=== PATIENT | male | born 1955 | race Caucasian/White ===

== ENCOUNTER 2019-10-06 09:48 | Outpatient (CLI) | payer MEDICARE, SELFPAY ==
[2019-10-06 10:10] LABS: Basophils Percent Auto 0.6 % (0.2-1.2); Eosinophils Percent Auto 0.6 % (0-4.4); Hematocrit 42.9 % (42.0-52.0); Hemoglobin 14.1 g/dL (14.0-18.0); Immature Granulocyte Absolute 0.03 K/mm3 (0.00-0.031); Immature Granulocyte Percent A 0.5 % (0-0.5); Lymphocytes Absolute Auto 1.05 K/mm3 (0.9-3.2); Lymphocytes Percent Auto 16.6 % (18.3-44.2); Mean Corpuscular HGB Conc 32.9 g/dl (32-36); Mean Corpuscular Hemoglobin 30.5 pg (26-34); Mean Corpuscular Volume 92.9 fl (80-100); Mean Platelet Volume 9.2 fl (7.4-10.4); Monocytes Absolute Auto 0.4 K/mm3 (0.1-0.6); Monocytes Percent Auto 6.5 % (2.6-8.5); Neutrophils Absolute Auto 4.8 K/mm3 (1.3-6.7); Neutrophils Percent Auto 75.2 % (45.5-73.1); Platelet Count Result 244 k/mm3 (150-375); Red Blood Count 4.62 M/mm3 (4.6-6.20); Red Cell Distribution Width 12.7 % (11.5-14.5); White Blood Count 6.3 K/mm3 (4.5-10.0)
[2019-10-06 15:13] LABS: Alanine Aminotransferase 227 U/L (4-50); Albumin Level 4.3 g/dL (3.5-5.1); Alkaline Phosphatase 331 U/L (38-126); Aspartate Amino Transferase 148 U/L (17-59); Bilirubin,Total 0.5 mg/dL (0.2-1.3); Blood Urea Nitrogen 21 mg/dL (9-20); Calcium 9.5 mg/dL (8.4-10.2); Carbon Dioxide 24 mmol/L (22-30); Chloride 103 mmol/L (98-107); Estimated Glomerular Filt Rate > 60; Glucose 96 mg/dL (75-110); Potassium 4.6 mmol/L (3.4-5.0); Sodium 136 mmol/L (137-145)
== END 2019-10-06 09:49 | disposition home or self-care (01) ==
LOC: ANHLAB 09:54
PROVIDERS: PCP Internal Medicine; Visit Provider Internal Medicine Hematology & Oncology
DX: C34.90 Malignant neoplasm of unspecified part of unspecified bronchus or lung (principal)
CPT/HCPCS: 36415; 80053; 85025

== ENCOUNTER 2019-11-12 11:34 | Outpatient (CLI) | payer MEDICARE, SELFPAY ==
--- NOTE | 2019-11-12 11:36 | ECG_ITS ---
Measurements Intervals [place] Rate: 81 P: 38 SC: 254 QRS: 11 QRSD: 94 T: 8 QT: 356 QTc: 413 Interpretive Statements SINUS RHYTHM BASELINE ARTIFACT- I, II, III, AVR, AVL, AVF, V1-V6 BORDERLINE ECG Electronically Signed On 11-12-2019 12:34:23 CDT by Sujit Robison D.O.
[2019-11-12 12:13] LABS: INR 1.1
[2019-11-12 12:14] LABS: Partial Thromboplastin Time 26.5 SECONDS (22.3-36.8)
== END 2019-11-12 11:35 | disposition home or self-care (01) ==
PROVIDERS: PCP Internal Medicine; Visit Provider Surgery
DX: Z01.818 Encounter for other preprocedural examination (principal); I10 Essential (primary) hypertension; C34.90 Malignant neoplasm of unspecified part of unspecified bronchus or lung
CPT/HCPCS: 36415; 85610; 85730; 93005

== ENCOUNTER 2019-11-20 00:20 | Outpatient (CLI) | payer MEDICARE, SELFPAY ==
[2019-11-20 17:26] LABS: SARS-CoV-2 RNA PCR Negative
== END 2019-11-20 00:21 | disposition home or self-care (01) ==
LOC: ANHCOVIDDT 00:20
PROVIDERS: PCP Internal Medicine; Visit Provider Surgery
DX: Z01.812 Encounter for preprocedural laboratory examination (principal); Z20.828 Contact with and (suspected) exposure to other viral communicable diseases
CPT/HCPCS: 87635; C9803; U0003

== ENCOUNTER 2019-11-23 00:17 | Day surgery (SDC) | payer MEDICARE, SELFPAY ==
[2019-11-11 13:57] VITALS: BMI 34.4
--- NOTE | ~2019-11-23 | XR_ITS ---
EXAMINATION: XR fl guide central line place DATE: 11/23/2019 09:15 INDICATION: Port placement. TECHNIQUE: A single intraoperative fluoroscopic view of the chest was obtained. I was not present. Fl uoroscopy exposure time was 16 seconds. COMPARISON: Chest single view 11/23/2019 FINDINGS: There is a left subclavian port with tip not included. IMPRESSION: 1. Port placement. Reviewed, dictated and finalized at location A. IMPRESSION: 1. Port placement.
--- NOTE | ~2019-11-23 | XR_ITS ---
EXAMINATION: XR chest port-a-cath/central DATE: 11/23/2019 09:26 INDICATION: Port placement. TECHNIQUE: A single frontal view of the chest was obtained. COMPARISON: None. FINDINGS: The chest demonstrates clear lungs without pneumonia, pleural effusion, or pneumothorax. Th e heart size is normal. There is a left subclavian port with tip in superior vena cava. IMPRESSION: 1. Port tip in superior vena cava. Reviewed, dictated and finalized at location A.
--- NOTE | 2019-11-23 07:28 | PM.IMHP ---
H&P: HPI History of Present Illness Chief complaint: Small Cell Lung Cancer Narrative: Jaylen Cote is a 64 year old male presenting to hospital for placement of port. Pt has metastatic small cell lung cancer. Pt to initiate chemotx on 11/24. Pt denies previous central venous catheterization. Review of Systems Constitutional: Constitutional: Reports body ache(s), Denies chills, Reports fatigue, Reports lethargy and Reports weakness Eyes: Eyes: Reports no additional eye complaints ENT: Reports Normal hearing present Cardiovascular: Cardiovascular: Denies chest pain and Denies palpitations Respiratory: Respiratory: Denies cough, Reports dyspnea and Reports wheezing Gastrointestinal: Gastrointestinal: Denies abdominal pain, Denies bloating, Denies constipation, Denies diarrhea, Denies nausea and Denies vomiting Genitourinary: Genitourinary: Denies dysuria Musculoskeletal: Musculoskeletal: Reports no additional musculoskeletal complaints Integumentary/Breasts: Skin/Breast: Reports system reviewed and no additional complaints, except as docu Neurologic: Reports system reviewed and no additional complaints, except as documented Psychiatric: Psychiatric: Reports no additional psychiatric complaints PMFSH Social History Social History Smoking status: Former smoker Tobacco type: cigarettes Smoking end date: 06/21/17 Alcohol intake: current Gender identity (if verbalized by the patient): Male Spiritual care concerns: No Meds Home Medications and Allergies Home Medications Medication Instructions Recorded Confirmed Type amlodipine 5 mg PO DAILY 10/15/19 11/11/19 History aspirin [Aspir-81] 81 mg PO DAILY 10/15/19 11/11/19 History atorvastatin [Lipitor] 10 mg PO DAILY 10/15/19 11/11/19 History benazepril 20 mg PO DAILY 10/15/19 11/11/19 History prochlorperazine maleate 10 mg PO PRN PRN 10/15/19 11/11/19 History multivitamin,dy-mdrf-xhefvhpv 1 tablet PO DAILY 11/11/19 11/11/19 History [Complete Multivitamin] vit C-E-zinc bp-qlma-bob-zeax 1 cap PO DAILY 11/11/19 11/11/19 History [ICaps AREDS2] Allergies Allergy/AdvReac Type Severity Reaction Status Date / Time No Known Allergies Allergy Unknown NONE Verified 11/11/19 13:31 Exam Const: General: comfortable and no acute distress HENMT: Mouth: Yes moist mucous membranes Eyes: Pupils: Equal, round and reactive pupils present EOM: EOMs intact bilaterally Neck: Neck: supple and no JVD Lymphatic: lymphadenopathy not noted Resp: Auscultation: diminished lung sounds Cardio: Rate: regular rate Rhythm: regular rhythm GI: GI Palp: Yes Soft to palpation, No Tenderness to palpation present (GI), No Guarding due to palpation present (GI) and No Hernia present Skin: General skin exam: normal color Neuro: Speech: normal speech Motor exam (neuro): 5/5 motor strength present throughout Extrem: General: normal to inspection and no edema Right upper extremity: full ROM; no cyanosis and no edema Psych: Mental Status: mental status grossly normal Assessment and Plan Assessment and plan (1) Small cell lung cancer: Code(s): C34.90 - Malignant neoplasm of unspecified part of unspecified bronchus or lung Status: Acute Assessment and Plan: will setup for port placement, risks, benefits, and alternatives d/w pt and he wishes to proceed
--- NOTE | 2019-11-23 07:35 | WPDANESEPPF ---
Anes - Initial Pre Proc Eval Procedure: Operation Date: 11/23/19 09:00 Proposed Procedures p Insertion Tita Cath - Juanis Malhotra MD Date/Time: 11/23/19 07:35 Surgeon: Juanis Malhotra MD Pre Op Diagnosis: Small Cell Lung Cancer Patient Data Age: 64 Gender: M Height: 1.78 m Weight: 108.9 kg Allergies Allergy/AdvReac Type Severity Reaction Status Date / Time No Known Allergies Allergy Unknown NONE Verified 11/11/19 13:31 Home Medications Medication Instructions Recorded Confirmed Type amlodipine 5 mg PO DAILY 10/15/19 11/11/19 History aspirin [Aspir-81] 81 mg PO DAILY 10/15/19 11/11/19 History atorvastatin [Lipitor] 10 mg PO DAILY 10/15/19 11/11/19 History benazepril 20 mg PO DAILY 10/15/19 11/11/19 History prochlorperazine maleate 10 mg PO PRN PRN 10/15/19 11/11/19 History multivitamin,ui-qvrg-qugvfxse 1 tablet PO DAILY 11/11/19 11/11/19 History [Complete Multivitamin] vit C-E-zinc nc-gqcr-sfs-zeax 1 cap PO DAILY 11/11/19 11/11/19 History [ICaps AREDS2] ECG: Date of Service: 11/12/19 Procedure(s): CA 12 lead EKG Accession Number(s): [id number] cc: ~ Measurements Intervals [place] Rate: 81 P: 38 SC: 254 QRS: 11 QRSD: 94 T: 8 QT: 356 QTc: 413 Interpretive Statements SINUS RHYTHM BASELINE ARTIFACT- I, II, III, AVR, AVL, AVF, V1-V6 BORDERLINE ECG Electronically Signed On 11-12-2019 12:34:23 CDT by Sujit Robison D.O. 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 AND SPINE Social History Social History Smoking status: Former smoker Tobacco type: cigarettes Smoking end date: 06/21/17 Alcohol intake: current Gender identity (if verbalized by the patient): Male Spiritual care concerns: No Anes - Eval Final PreProcedure Day of Procedure 11/23/19 07:35 Patient weight: obese Heart: regular rate and rhythm Lungs: clear to auscultation and normal air movement Airway: Mallampati scale class II Neurological: alert and oriented Last oral intake: >/= 8 hours ASA classification: III Emergent: no Anesthetic plan: proceed Anesthesia type and monitoring: general GIVS Informed Consent: The patient's anesthetic plan and its attendant risks and benefits were discussed with the patient/family/POA. Questions were solicited and answers provided to the satisfaction of the patient/family/POA.
[2019-11-23 07:37] VITALS: BP 139/77; PULSE 77; RESP 20; TEMP 35.8; O2SAT 99
[2019-11-23] MEDS: LACTATED RINGERS 1,000 ML 30 ML IV CONT (08:15)
[2019-11-23] MEDS: BUPIVACAINE/EPINEPHRINE 0.5% 30 ML VIAL 10 ML INFILTRATE (08:34)
[2019-11-23] MEDS: HEPARIN SODIUM 5,000 UNITS/ML VIAL 5000 UNITS IRRIGATION (08:34)
[2019-11-23] MEDS: ceFAZolin 2 GM/D5W 50 ML 2 GM/50 ML BAG IVPB (08:34)
[2019-11-23] MEDS: HEPARIN SODIUM, PORCINE 10,000 UNITS/10 ML VIAL 3000 UNITS IV PUSH (08:34)
--- NOTE | 2019-11-23 09:12 | SUR.OPER ---
ebl:[id number]
[2019-11-23 09:15] VITALS: BP 89/50; PULSE 81; RESP 20; O2SAT 97
--- NOTE | 2019-11-23 09:20 | PM.PROC ---
Procedure Note - Detailed Date of procedure: 11/23/19 Pre-op diagnosis: Small Cell Lung Cancer Post-op diagnosis: same Procedure performed: placement of left subclavian venous access device under fluroscopic guidance Description of procedure: Patient was brought into the operating room and placed in the supine position. After adequate induction of mac anesthesia, the patient was prepped and draped in normal sterile fashion. Time-out was then done to verify the patient's identity, as well as the procedure being performed. I began by making a small incision in the left chest, I then gained access into the left subclavian vein with an 18 gauge needle. I then placed the guidewire into the vein and confirmed placement via fluoroscopic guidance. I then locally anesthetized the area in the left chest. I then enlarged the incision around the guidewire including making a subcutaneous pocket inferiorly to allow placement of the port itself. I then placed a dilating sheath over the guidewire into the left subclavian vein via sterile Seldinger technique. This was once again done and confirmed via fluoroscopic guidance. I then removed the dilator and the guidewire, now just leaving the sheath in the vein. I then fed the previously flushed catheter into the left subclavian vein under fluoroscopic guidance. At approximately 20 cm, the catheter was noted to be near the atrial caval junction. I then peeled away the sheath, now just leaving the catheter in the vein. I then was able to easily draw and flush from the catheter. The catheter was cut to fit and attached to the port itself. The port was placed into the previously made subcutaneous pocket and sutured in with 0 Ethibond suture. Final fluoroscopic view showed the termination of the catheter at the atrial caval junction with a nice smooth curvature back to the port itself. I was able to gain access to the port with a Laird needle and was able to easily draw and flush from the port. I then flushed 4 cc of a final heparin flush into the port. The incision was closed with 3 0 Vicryl suture in the subcutaneous tissue and the skin was closed with 4 O Monocryl subcuticular suture. Dermabond was then placed on wound. The patient tolerated the procedure well and will be sent to the recovery room in stable condition. Implants: L SCV VAD Anesthesia: MAC and local Surgeon: Juanis Malhotra MD Estimated blood loss (mL): 5 Drains: No Packing: No Pathology: none sent Complications: No immediate complications Condition: stable Disposition: PACU Findings: placement of L SCV VAD via 1st stick
[2019-11-23 09:45] VITALS: BP 120/62; PULSE 69
[2019-11-23 10:00] VITALS: BP 124/84; PULSE 64; O2SAT 100
--- NOTE | 2019-11-23 10:15 | SUR.PHASEII ---
1010: OK to restart aspirin immediately.
== END 2019-11-23 10:20 | disposition home or self-care (01) ==
PROVIDERS: PCP Internal Medicine; Visit Provider Surgery
PROC: (CPT 36561; principal; 2019-11-23 09:00)
DX: C34.90 Malignant neoplasm of unspecified part of unspecified bronchus or lung (principal); C79.51 Secondary malignant neoplasm of bone; C78.7 Secondary malignant neoplasm of liver and intrahepatic bile duct; I10 Essential (primary) hypertension; E78.00 Pure hypercholesterolemia, unspecified; E66.9 Obesity, unspecified; Z87.891 Personal history of nicotine dependence; Z68.33 Body mass index [BMI] 33.0-33.9, adult
CPT/HCPCS: 36561; 77001; C1788; J0690; J1100; J1644; J2250; J2405; J2704; J3010; J7030; J7120

== ENCOUNTER 2020-01-19 08:41 | Outpatient (CLI) | payer MEDICARE, SELFPAY ==
--- NOTE | ~2020-01-19 | CT_ITS ---
EXAMINATION: CT chest abdomen pelvis w con DATE: 01/19/2020 09:25 INDICATION: Small cell lung cancer. No prior imaging available. Note from oncology consultation jamesr brandon prior imaging demonstrated a right lower lobe lung nodule, subcarinal and paratracheal lymphaden opathy, liver and pancreas metastases as well as metastatic disease involving the T8, T9, and T12 kelley tebral bodies. TECHNIQUE: Transaxial computed tomographic images of the chest, abdomen, and pelvis were obtained aft er the administration of 100 cc of Omnipaque 350 intravenous contrast. The dose-length product (DLP) was 1399.16 mGy-cm. Automated exposure control and iterative reconstruction technique were employed. COMPARISON: None FINDINGS: CHEST CT: No persistent right lower lobe mass is identified. Subcarinal lymph nodes measure up to 1.7 cm in maría rt axis. The heart size is normal. There is no pleural effusion or pneumothorax. Calcified mediastina l and bilateral hilar lymph nodes are consistent with old granulomatous disease. A left subclavian Po rt-A-Cath ends with its tip in the proximal superior vena cava. No definite CT correlate is identifie d for the reported osseous metastases of the lower thoracic spine. ABDOMEN/PELVIS CT: There are multiple hypoattenuating liver masses, the largest of which measures 3.5 x 2.4 cm liver seg ment IVb. There is a 2.8 x 2.3 cm cystic mass in the head of the pancreas, likely representing the pr eviously biopsied metastatic small cell lung cancer. The spleen, gallbladder, and adrenal glands are normal. Cysts of the kidneys measure up to 2.3 cm on the right. No pathologically enlarged abdominal or pelvic lymph nodes are identified. There is no free intraperitoneal gas or evidence of bowel obstr uction. There are changes of left total hip arthroplasty. There is severe lumbar spondylosis. IMPRESSION: 1. Apparent interval response to therapy in the thorax when today's imaging findings are compared wit h description of prior imaging findings in the oncology note. 2. Liver and pancreas metastases of unclear treatment response given the absence of direct imaging co mparison. Reviewed, dictated and finalized at location B. IMPRESSION: 1. Apparent interval response to therapy in the thorax when today's imaging fin dings are compared with description of prior imaging findings in the oncology n ote. 2. Liver and pancreas metastases of unclear treatment response given the absenc e of direct imaging comparison.
[2020-01-19 09:13] LABS: Estimated Glomerular Filt Rate > 60
== END 2020-01-19 08:42 | disposition home or self-care (01) ==
LOC: ANHIMG 08:45
PROVIDERS: PCP Internal Medicine; Visit Provider Internal Medicine Hematology & Oncology
DX: C34.90 Malignant neoplasm of unspecified part of unspecified bronchus or lung (principal); C78.7 Secondary malignant neoplasm of liver and intrahepatic bile duct; C78.89 Secondary malignant neoplasm of other digestive organs
CPT/HCPCS: 36415; 71260; 74177; Q9967

== ENCOUNTER 2020-04-05 08:36 | Outpatient (CLI) | payer MEDICARE, SELFPAY ==
--- NOTE | ~2020-04-05 | CT_ITS ---
EXAMINATION: CT chest abdomen pelvis w con DATE: 04/05/2020 09:14 INDICATION: Small cell lung cancer TECHNIQUE: Computed tomography (CT) of the chest, abdomen, and pelvis was performed . with 100 mL Omn ipaque-350 intravenous contrast. Automated exposure control and iterative reconstruction technique we re employed. The dose-length product was 1709.88 mGy-cm. COMPARISON: None FINDINGS: CHEST CT: There are few scattered bilateral small calcified pulmonary nodules along with calcified mediastinal and bilateral hilar lymph nodes consistent with old granulomatous disease. Mild discoid atelectasis a t the right middle lobe. No suspicious pulmonary nodules, pneumonia, pulmonary edema, pleural effusio n or pneumothorax. Heart size is normal. Atherosclerotic coronary artery calcifications. No pericardi al effusion. Thoracic aorta is normal in caliber with no dissection. Left subclavian central venous p ort catheter with distal tip at the caudal superior vena cava. Interval decrease in size of a few enh ancing subcarinal lymph nodes. For reference the furthest left positioned subcarinal lymph node has d ecreased from 1.8 x 1.6 cm currently measuring 1.7 x 1.4 cm. A more caudal subcarinal lymph node posi tioned near a densely calcified lymph node has decreased from 1.9 x 1.3 cm currently measuring 1.5 x 1.1 cm. No new or enlarging thoracic lymphadenopathy. Mild upper thoracic levocurvature with severe s pondylosis at the upper thoracic spine and mild to moderate spondylosis in the mid and lower thoracic spine. There is fatty atrophy of the bilateral supraspinatus and infraspinatus muscle bellies as wel l as narrowing of the bilateral subacromial spaces suggesting chronic rotator cuff tears. ABDOMEN/PELVIS CT: There are at least 9 hypoenhancing liver lesions which have decreased slightly in size since the prio r study. For reference to the larger masses in the right hepatic lobe have decreased from 2.7 x 2.3 c m to currently measuring 2.3 x 2.0 cm and the second decreased from 3.2 x 2.8 cm to currently measuri ng 2.7 x 2.3 cm. Gallbladder and bilateral adrenal glands are normal. No interval change in a 2.7 x 2 .1 cm cystic mass with suggestion of a thin internal septation located at the head of the pancreas. T here are few small calcified nodules in the spleen consistent with old granulomatous disease. There a re few bilateral renal cysts, the largest measuring 2.2 cm at the right kidney. Normal appendix. Ther e is prominent sigmoid diverticulosis without adjacent inflammatory change to suggest diverticulitis. Small bowel is unremarkable with no obstruction. Bladder is normal. No free intraperitoneal gas or fluid. There is calcified atherosclerosis of the aorta and many of the other arteries. The prior FDG avid bulky periportal and retroperitoneal lymphadenopathy has resolved. The periportal lymph node sima suring 2.4 x 1.5 cm on the most recent prior study has continued to decrease in size, now measuring 2 .0 x 1.2 cm. No new, enlarging or residual pathologically enlarged abdominal or pelvic lymphadenopath y. 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 Ch ronic L3 compression fracture with superimposed Schmorl's node along the superior endplate. Left tota l hip arthroplasty. No appreciable interval change in poorly defined regions of sclerosis previously demonstrating increased FDG uptake on prior PET study consistent with metastatic disease at the right posterior iliac spine and centered at the right pedicle of T12. Relatively symmetric moderate fatty atrophy of the bilateral gluteus medius medius and minimus muscle bellies. IMPRESSION: 1. Decrease in size of mediastinal and periportal lymphadenopathy as well as several hepatic masses c onsistent with continued response to treatment of metastatic disease. 2. No significant interval change in sclerotic lesions at T12 on the right
== END 2020-04-05 08:37 | disposition home or self-care (01) ==
LOC: ANHIMG 08:37
PROVIDERS: PCP Internal Medicine; Visit Provider Internal Medicine Hematology & Oncology
DX: C34.90 Malignant neoplasm of unspecified part of unspecified bronchus or lung (principal); R59.1 Generalized enlarged lymph nodes; R16.0 Hepatomegaly, not elsewhere classified; M89.9 Disorder of bone, unspecified; K86.9 Disease of pancreas, unspecified
CPT/HCPCS: 71260; 74177; Q9967

== ENCOUNTER 2020-04-18 08:00 | Outpatient (CLI) | payer MEDICARE, SELFPAY ==
--- NOTE | ~2020-04-18 | MR_ITS ---
EXAMINATION: MR brain/brain stem wo/w con DATE: 04/18/2020 09:25 INDICATION: Small cell lung cancer. TECHNIQUE: Magnetic resonance imaging (MRI) of the brain and brainstem was performed without and with 20 mL MultiHance intravenous contrast. Sequences included sagittal and axial T1-weighted FSE, axial diffusion-weighted FS EPI, axial T2*-weighted GRE, axial T2-weighted FLAIR Propeller, and axial T2-we ighted Propeller. Postcontrast sequences included axial, sagittal, and coronal T1-weighted FSE. Appar ent diffusion coefficient (ADC) maps were created. COMPARISON: Brain MRI 10/01/2019 FINDINGS: There is no acute ischemic infarct. There are 8 scattered enhancing masses in the brain wit h the largest measuring 3.7 x 3.3 cm in posterior right frontal lobe. Most of the masses are ring-enh ancing and some contain areas of hemorrhage. Two of the masses contain fluid-fluid levels. Some of th e masses demonstrate adjacent vasogenic edema. There are scattered areas of nonspecific increased T2- weighted signal intensity in the cerebral white matter, which is within normal limits for the patient 's age. The ventricles are normal in size. There is mild mucosal thickening in the ethmoid sinuses. T he mastoid air cells are normal. The orbits are normal. IMPRESSION: 1. New brain masses, consistent with metastatic disease. Reviewed, dictated and finalized at location A.
[2020-04-18 08:48] LABS: Estimated Glomerular Filt Rate > 60
== END 2020-04-18 08:01 | disposition home or self-care (01) ==
PROVIDERS: PCP Internal Medicine; Visit Provider Internal Medicine Hematology & Oncology
DX: C34.90 Malignant neoplasm of unspecified part of unspecified bronchus or lung (principal)
CPT/HCPCS: 70553; A9577

== ENCOUNTER 2020-05-17 20:40 | Emergency (ER) | payer MEDICARE, SELFPAY ==
--- NOTE | ~2020-05-17 | CT_ITS ---
EXAMINATION: CT brain wo con DATE: 05/17/2020 21:25 INDICATION: Aphasia TECHNIQUE: Computed tomography (CT) of the head was performed without intravenous contrast. Sagittal and coronal reconstructions were performed. The mA was adjusted according to patient size. Iterative reconstruction technique was employed. The dose-length product was 681.00 mGy-cm. COMPARISON: Brain MR dated 04/18/2020 FINDINGS: Again seen are several masses with relative increased density of the soft tissue component scattered throughout the brain consistent with metastatic disease. This includes an approximately 1.8 cm lesion in the right frontal lobe which is predominant cystic with small amount of layering high attenuation either blood or proteinaceous fluid within the cystic component of the mass and with mild surroundin g vasogenic edema. Additional more subtle lesions are seen at the left thalamus, the left occipital l obe and anteriorly at the bilateral cerebellar hemispheres. Aside from the potential small amount of blood within the cystic component of the right frontal lobe lesion there is no other acute intracrani al hemorrhage. A couple small old lacunar infarcts at the right basal ganglia. No acute infarction or abnormal extra axial fluid collection. Ventricles are normal and symmetric. The orbits, paranasal si nuses and mastoid air cells are normal. IMPRESSION: 1. Multiple brain masses consistent with metastatic disease. This includes a predominant cystic mass in the right frontal lobe with internal layering fluid fluid level which was present at the time of t he prior study and could be related to either debris/proteinaceous fluid or blood. No other intracran ial hemorrhage. 2. A couple old lacunar infarcts at the right basal ganglia. Reviewed, dictated and finalized at location . T REPAIRER IMPRESSION: 1. Multiple brain masses consistent with metastatic disease. This includes a pr edominant cystic mass in the right frontal lobe with internal layering fluid fl uid level which was present at the time of the prior study and could be related to either debris/proteinaceous fluid or blood. No other intracranial hemorrhag e. 2. A couple old lacunar infarcts at the right basal ganglia.
--- NOTE | 2020-05-17 20:46 | ECG_ITS ---
Measurements Intervals [place] Rate: 85 P: 29 [place]: 179 QRS: 3 QRSD: 93 T: 38 QT: 343 QTc: 409 Interpretive Statements SINUS RHYTHM LOW QRS VOLTAGE IN PRECORDIAL LEADS BORDERLINE R WAVE PROGRESSION, ANTERIOR LEADS CONSIDER INFERIOR INFARCT, AGE INDETERMINATE BASELINE ARTIFACT- I, II, AVR, AVF ABNORMAL ECG Electronically Signed On 05-18-2020 7:25:06 [employer] by Sujit Robison D.O.
[2020-05-17 20:49] VITALS: BP 180/96; PULSE 88; RESP 28; TEMP 36.6; O2SAT 96
--- NOTE | 2020-05-17 20:58 | ED.GENADULT ---
HPI - General Adult General Chief complaint: Unspecified Stated complaint: sudden onset of aphasia Time Seen by Provider: 05/17/20 20:46 Source: patient History of Present Illness HPI narrative: Patient states he was having trouble finding words and talking 1 to 1 1/2 hour ago. This happened around 7:30 PM. He was writing Thanksgiving speech when this occured. This lasted about half an hour and resolved spontaneously. He denies any focal weakness or numbness. Related Data Home Medications Medication Instructions Recorded Confirmed amlodipine [Norvasc] 5 mg PO DAILY 04/20/20 05/09/20 aspirin 81 mg PO DAILY 04/20/20 05/09/20 benazepril [Lotensin] 20 mg PO DAILY 04/20/20 05/09/20 dexamethasone [Decadron] 4 mg PO BID 04/20/20 05/09/20 levetiracetam [Keppra] 500 mg PO BID 04/20/20 05/09/20 multivitamin [Daily Multivitamin] 1 tablet PO DAILY 04/20/20 05/09/20 prochlorperazine maleate 10 mg PO Q6H PRN 04/20/20 05/09/20 [Compazine] tramadol 50 mg PO Q6H PRN 04/20/20 05/09/20 valacyclovir [Valtrex] 1,000 mg PO TID 04/20/20 05/09/20 dexamethasone 2 mg PO DAILY 05/02/20 05/09/20 Allergies Allergy/AdvReac Type Severity Reaction Status Date / Time No Known Allergies Allergy Unknown NONE Verified 05/02/20 13:15 Review of Systems Constitutional: Constitutional: Denies chills, Denies fever(s), Denies headache(s) and Denies weakness Eyes: Eyes: Denies blurry vision ENT: Denies headache(s) and Denies neck pain Cardiovascular: Cardiovascular: Denies chest pain and Denies dyspnea Respiratory: Respiratory: Denies cough and Denies dyspnea Gastrointestinal: Gastrointestinal: Denies abdominal pain, Denies diarrhea, Denies nausea and Denies vomiting Genitourinary: Genitourinary: Denies hematuria and Denies dysuria Musculoskeletal: Musculoskeletal: Denies back pain and Denies neck pain Neurologic: Denies headache(s) and Denies weakness [facility] Past Medical History Medical History HTN (hypertension) Hypercholesterolemia Obesity Small cell lung cancer LUNG CA WITH MICHELLE TO LIVER AND SPINE Family History Family History Father Heart disease Social History Social History Smoking packs per day: 1 Smoking cigarettes per day: 20.0 Years smoked: 40 Smoking pack-years: 40.00 Smoking status: Former smoker Tobacco type: cigarettes Smoking end date: 06/21/17 Alcohol intake: current Gender identity (if verbalized by the patient): Male Spiritual care concerns: No Course Reevaluation(s) Reevaluation #1: Discussed with patient about transfer. He prefers to be transferred to [facility]. 00:10 [facility] transfer center states there is no bed at this time, patient will be placed on waiting list and they will call back when bed is available. Date: 05/17/20 Time: 23:30 Consultations Consultation #1: Discussed with Dr. Manning, who recommends transfer. Date: 05/18/20 Time: 00:30 Consultation #2: Discussed with Dr. Schwab (neurology) at [place]. He recommends transfer to [facility]. Date: 05/18/20 Time: 00:35 Consultation #3: Discussed with Dr. Nguyen at [facility], who agrees to accept the patient for transfer. Date: 05/18/20 Time: 01:25 Vital Signs Vital signs: Vital Signs Temperature 36.6 C 05/17/20 20:49 Pulse Rate 88 05/17/20 20:49 Respiratory Rate 28 H 05/17/20 20:49 Blood Pressure 180/96 H 05/17/20 20:49 Pulse Oximetry 96 05/17/20 20:49 Temperature 36.7 C 05/18/20 08:00 Pulse Rate 83 05/18/20 08:00 Respiratory Rate 20 05/18/20 08:00 Blood Pressure 163/83 H 05/18/20 08:00 Pulse Oximetry 98 05/18/20 08:00 Medical Decision Making Vital Signs Vital Signs: Vital Signs Temperature 36.6 C 05/17/20 20:49 Pulse Rate 88 05/17/20 20:49 Respiratory Rate 28 H 05/17/20 20:49 Blood Pressure 180/96 H 05/17/20
[2020-05-17 21:34] LABS: Basophils Percent Auto 0.2 % (0.2-1.2); Hematocrit 44.2 % (42.0-52.0); Hemoglobin 15.3 g/dL (14.0-18.0); Immature Granulocyte Percent A 2.2 % (0-0.5); Immature Platelet Fraction Pct 1.8 % (0.9-11.2); Lymphocytes Absolute Auto 0.57 K/mm3 (0.9-3.2); Lymphocytes Percent Auto 12.6 % (18.3-44.2); Mean Corpuscular HGB Conc 34.6 g/dl (32-36); Mean Corpuscular Hemoglobin 30.5 pg (26-34); Mean Platelet Volume 8.7 fl (7.4-10.4); Monocytes Absolute Auto 0.2 K/mm3 (0.1-0.6); Monocytes Percent Auto 4.4 % (2.6-8.5); Neutrophils Absolute Auto 3.7 K/mm3 (1.3-6.7); Neutrophils Percent Auto 80.6 % (45.5-73.1); Platelet Count Result 118 k/mm3 (150-375); Red Blood Count 5.02 M/mm3 (4.6-6.20); Red Cell Distribution Width 13.3 % (11.5-14.5); White Blood Count 4.5 K/mm3 (4.5-10.0)
[2020-05-17 21:42] LABS: Partial Thromboplastin Time 23.3 SECONDS (22.3-36.8); Prothrombin Time 13.9 Seconds (11.1-14.7)
[2020-05-17 21:45] LABS: Alanine Aminotransferase 42 U/L (4-50); Albumin Level 3.8 g/dL (3.5-5.1); Alkaline Phosphatase 67 U/L (38-126); Anion Gap 6 mmol/L (8-16); Aspartate Amino Transferase 26 U/L (17-59); Bilirubin,Total 0.9 mg/dL (0.2-1.3); Blood Urea Nitrogen 33 mg/dL (9-20); Calcium 8.7 mg/dL (8.4-10.2); Carbon Dioxide 30 mmol/L (22-30); Chloride 98 mmol/L (98-107); Estimated CRCL calculation 69 ml/min; Estimated Glomerular Filt Rate > 60; Glucose 97 mg/dL (75-110); Potassium 4.3 mmol/L (3.4-5.0); Sodium 134 mmol/L (137-145)
[2020-05-17 22:46] VITALS: BP 154/100; PULSE 74; RESP 17; O2SAT 97
--- NOTE | 2020-05-18 | PC.NURSE ---
Junito from [facility] Patient Transfer Access called and said there are NO beds available at this time for this patient. Patient is on a waitlist.
[2020-05-18 00:47] VITALS: BP 147/96; PULSE 73; RESP 16; TEMP 36.6; O2SAT 97
--- NOTE | 2020-05-18 01:59 | PC.NURSE ---
01:45 - Naveen, patient access, called with bed assignment at [facility]. #[id number]. Informed nurse.
--- NOTE | 2020-05-18 02:00 | PC.NURSE ---
Addendum entered by Gertrudis Rodriges 05/18/20 06:37: Called [facility] for status...ETA is now 07:30 Addendum entered by Gertrudis Rodriges 05/18/20 05:05: 0505: Called [facility] for status...ETA is now 06:30 Addendum entered by Gertrudis Rodriges 05/18/20 02:08: 0205: Called [facility] - declined 0207: Called [facility] - due to the volume of calls, declined. Original Note: Called [facility] to transport patient to [facility] #[id number]. ETA 05:00 (Call volume exceeding availability)
--- NOTE | 2020-05-18 02:07 | PC.NURSE ---
[facility] to jose@ [facility]
[2020-05-18 02:57] VITALS: BP 156/88; PULSE 67; RESP 18; O2SAT 96
[2020-05-18 05:41] VITALS: BP 159/84; PULSE 79; RESP 20; O2SAT 96
--- NOTE | 2020-05-18 06:38 | PC.NURSE ---
yan eta know is [phone]
[2020-05-18 08:00] VITALS: BP 163/83; PULSE 83; RESP 20; TEMP 36.7; O2SAT 98
== END 2020-05-18 08:12 | disposition short-term general hospital (02) ==
PROVIDERS: Emergency Provider Emergency Medicine; PCP Internal Medicine
DX: G45.9 Transient cerebral ischemic attack, unspecified (principal); C34.10 Malignant neoplasm of upper lobe, unspecified bronchus or lung; C79.31 Secondary malignant neoplasm of brain; Z87.891 Personal history of nicotine dependence; I10 Essential (primary) hypertension; E78.5 Hyperlipidemia, unspecified
CPT/HCPCS: 36415; 70450; 80053; 85025; 85055; 85610; 85730; 93005; 99285

== ENCOUNTER 2020-06-11 11:56 | Inpatient (IN) | payer MEDICARE, SELFPAY ==
[2020-06-11] VITALS (38 sets, daily range): BP systolic 136–177; BP diastolic 85–106; PULSE 86–107; RESP 12–31; TEMP 36.4–36.7; O2SAT 91–97; BMI 30.8
--- NOTE | ~2020-06-11 | CT_ITS ---
EXAMINATION: CT brain wo con DATE: 06/11/2020 13:31 INDICATION: Weakness. Falls. Lung cancer. TECHNIQUE: Computed tomography (CT) of the head was performed without intravenous contrast. The mA wa s adjusted according to patient size. Iterative reconstruction technique was employed. The dose-lengt h product was 681.00 mGy-cm. COMPARISON: Head CT 05/13/2020, brain MRI 04/18/2020 FINDINGS: There are scattered areas of low attenuation in the cerebral white matter. There are promin ent perivascular spaces in the right basal ganglia. There are old lacunar infarcts in the left basal ganglia. There is cystic encephalomalacia in posterior right frontal lobe and in right cerebellum, co nsistent with treated metastatic disease. There is no acute ischemic infarct or intracranial hemorrha ge. The ventricles are normal in size. The orbits are normal. There is mild mucosal thickening in the ethmoid sinuses. The mastoid air cells are normal. IMPRESSION: 1. Cystic encephalomalacia in right cerebellum and posterior right frontal lobe, consistent with rony sukhdeep metastatic disease with interval improvement. 2. Old lacunar infarcts in the left basal ganglia. 3. Mild nonspecific cerebral white matter disease, likely treatment change. Reviewed, dictated and finalized at location A. OGICAL SCIENTIST IMPRESSION: 1. Cystic encephalomalacia in right cerebellum and posterior right frontal lobe , consistent with treated metastatic disease with interval improvement. 2. Old lacunar infarcts in the left basal ganglia. 3. Mild nonspecific cerebral white matter disease, likely treatment change.
--- NOTE | ~2020-06-11 | XR_ITS ---
XR abdomen/kub 1V 06/13/2020 21:03 INDICATION: Gross hematuria TECHNIQUE: KUB COMPARISON: None FINDINGS: Bowel gas pattern is normal. There is no evidence of free air, mass, organomegaly, ascites or obstruction. There is a probable right renal stone Bowel content limits evaluation for renal ston es. The bones appear intact. There is a left total hip arthroplasty. Lung bases are unremarkable. IMPRESSION: 1: Probable right nephrolithiasis. Evaluation limited by bowel content. Reviewed, dictated and finalized at location A. ROOM ATTENDANT
--- NOTE | ~2020-06-11 | CT_ITS ---
EXAMINATION: CT abdomen pelvis wo/w con DATE: 06/14/2020 11:48 INDICATION: Gross hematuria TECHNIQUE: Computed tomography (CT) of the abdomen and pelvis was performed without intravenous contr ast. CT of the abdomen and pelvis was then performed with a total of 130 mL Omnipaque 350 intravenous contrast using a double-bolus technique for simultaneous opacification of the renal parenchyma and r enal collecting system. The dose-length product (DLP) was 2525.59 mGy-cm. Automated exposure control and iterative reconstruction technique were employed. COMPARISON: 04/05/2020 FINDINGS: Minimal dependent atelectasis is present in the lung bases. The heart size is normal. Previ ously described liver metastases have decreased in size. For instance, a 1.7 cm mass in liver segment VII previously measured 2.3 cm. The spleen, gallbladder, and adrenal glands are normal. There is a 2 .5 x 2.0 cm cystic mass in the head of the pancreas which is slightly decreased in size. Cysts of the kidneys measure up to 2.5 cm on the right. No suspicious renal lesion is identified. No stones are i dentified in the kidneys, ureters, or bladder. There is no hydronephrosis or hydroureter. There is di ffuse circumferential wall thickening of the urinary bladder. The bladder is partially decompressed b y Pinon catheter. No definite focal urothelial lesion is identified. No pathologically enlarged abdom inal or pelvic lymph nodes are identified. There is no free intraperitoneal gas or evidence of bowel obstruction. A moderate volume of colonic stool is present. There is calcified atherosclerosis of the aorta and many of the other arteries. There are changes of left hip arthroplasty. There is severe monica mbar spondylosis. Sclerotic metastases of the right posterior iliac spine and T12 pedicle on the rig ht are unchanged. IMPRESSION: 1. Diffuse wall thickening of the urinary bladder which could reflect cystitis. No discrete renal or urothelial mass identified. 2. Interval decrease in size of masses in the liver and pancreatic head, consistent with treatment re sponse. 3. Stable osseous metastases. Reviewed, dictated and finalized at location A. INE ENGINEER IMPRESSION: 1. Diffuse wall thickening of the urinary bladder which could reflect cystitis. No discrete renal or urothelial mass identified. 2. Interval decrease in size of masses in the liver and pancreatic head, consis tent with treatment response. 3. Stable osseous metastases.
--- NOTE | ~2020-06-11 | XR_ITS ---
EXAMINATION: XR chest 2V DATE: 06/11/2020 13:39 INDICATION: Weakness. TECHNIQUE: Frontal and lateral views of the chest were obtained. COMPARISON: Chest single view 11/23/2019, chest CT 04/05/2020 FINDINGS: The chest demonstrates clear lungs without pneumonia, pleural effusion, or pneumothorax. Th e heart size is normal. Calcified left hilar and mediastinal lymph nodes are consistent with old gran ulomatous disease. There is a left subclavian port with tip in superior vena cava. The catheter is di splaced between the clavicle and first rib. IMPRESSION: 1. No acute cardiopulmonary disease. Reviewed, dictated and finalized at location A. UNITY CASE MANAGER
--- NOTE | 2020-06-11 12:49 | ED.WEAKNESS ---
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 Reports over the last couple weeks he has developed increased fatigue with exertion over the last day he has been able to walk. He is not been able to get up off the toilet and will slump to the ground. He did not strike his head or lose consciousness. He has received radiation treatments to his brain. He is on Keppra and dexamethasone. Recently had an episode of expressive aphasia. There is concerned that he had a tiny amount of hemorrhage within one of his tumors. Reports she required no additional treatment for this. Related Data Home Medications Medication Instructions Recorded Confirmed amlodipine [Norvasc] 5 mg PO DAILY 04/20/20 05/24/20 aspirin 81 mg PO DAILY 04/20/20 05/24/20 benazepril [Lotensin] 20 mg PO DAILY 04/20/20 05/24/20 dexamethasone [Decadron] 4 mg PO BID 04/20/20 05/24/20 levetiracetam [Keppra] 1,000 mg PO BID 04/20/20 05/24/20 multivitamin [Daily Multivitamin] 1 tablet PO DAILY 04/20/20 05/24/20 prochlorperazine maleate 10 mg PO Q6H PRN 04/20/20 05/24/20 [Compazine] tramadol 50 mg PO Q6H PRN 04/20/20 05/24/20 valacyclovir [Valtrex] 1,000 mg PO TID 04/20/20 05/24/20 dexamethasone 2 mg PO DAILY 05/02/20 05/24/20 alprazolam See Rx Instructions .ROUTE 06/11/20 .COMPLEX PRN atorvastatin HS 06/11/20 omeprazole 20 mg PO DAILY 06/11/20 tramadol mg 06/11/20 vit C-E-zinc [id number]-awrk-dsm-zeax cap PO DAILY 06/11/20 [ICaps AREDS2] zolpidem HS 06/11/20 Allergies Allergy/AdvReac Type Severity Reaction Status Date / Time No Known Allergies Allergy Unknown NONE Verified 06/11/20 12:11 Review of Systems Review of Systems: All systems reviewed & are unremarkable except as noted in HPI and below Constitutional: Constitutional: Denies chills, Denies fever(s) and Reports weakness ENT: Denies nasal congestion and Denies sore throat Cardiovascular: Cardiovascular: Denies chest pain, Denies rapid heart rate and Denies radiating jaw, neck or arm pain Respiratory: Respiratory: Denies cough, Denies dyspnea and Denies wheezing Gastrointestinal: Gastrointestinal: Denies abdominal pain, Denies diarrhea, Denies nausea and Denies vomiting Neurologic: Denies dizziness, Denies headache(s), Denies focal weakness and Denies numbness PMFSH Past Medical History Medical History (Updated 06/11/20 @ 17:20 by Denton Beach MD) HTN (hypertension) Hypercholesterolemia Obesity Small cell lung cancer LUNG CA WITH METS TO LIVER/SPINE/BRAIN. Family History Family History Father Heart disease Social History Social History Smoking packs per day: 1 Smoking cigarettes per day: 20.0 Years smoked: 40 Smoking pack-years: 40.00 Smoking status: Former smoker Tobacco type: cigarettes Smoking end date: 06/21/17 Alcohol intake: current Gender identity (if verbalized by the patient): Male Spiritual care concerns: No Exam Narrative: Exam Narrative: GENERAL: Well-appearing, well-nourished, and in no acute distress. HEAD: Normocephalic, atraumatic. EYES: PERRL, EOMI CHEST: Clear to auscultation. No respiratory distress. HEART: Regular rate and rhythm. Normal peripheral pulses. ABDOMEN: Soft, nontender, nondistended. EXTREMITIES: Normal range of motion. No edema. SKIN: Warm, dry, no rash. NEURO: Alert and oriented x3. PSYCH: Normal mood and affect. Course Course Emergency Course: Admit to hospitalist. Likely needs placement in rehab. Vital Signs Vital signs: Vital Signs Pulse Rate 96 06/11/20 12:02 Respiratory Rate 20 06/11/20 12:02 Pulse Oximetry 96 06/11/20 12:02 Temperature 97
[2020-06-11 13:12] LABS: Hematocrit 37.6 % (42.0-52.0); Hemoglobin 13.2 g/dL (14.0-18.0); Immature Platelet Fraction Pct 1.8 % (0.9-11.2); Mean Corpuscular HGB Conc 35.1 g/dl (32-36); Mean Corpuscular Hemoglobin 31.1 pg (26-34); Mean Corpuscular Volume 88.7 fl (80-100); Platelet Count Result 152 k/mm3 (150-375); Red Blood Count 4.24 M/mm3 (4.6-6.20); Red Cell Distribution Width 15.1 % (11.5-14.5); White Blood Count 6.3 K/mm3 (4.5-10.0)
[2020-06-11 13:23] LABS: Alanine Aminotransferase 32 U/L (4-50); Albumin Level 3.7 g/dL (3.5-5.1); Alkaline Phosphatase 61 U/L (38-126); Anion Gap 4 mmol/L (8-16); Aspartate Amino Transferase 25 U/L (17-59); Bilirubin,Total 0.9 mg/dL (0.2-1.3); Blood Urea Nitrogen 22 mg/dL (9-20); Calcium 8.8 mg/dL (8.4-10.2); Carbon Dioxide 29 mmol/L (22-30); Chloride 98 mmol/L (98-107); Estimated CRCL calculation 103 ml/min; Estimated Glomerular Filt Rate > 60; Glucose 119 mg/dL (75-110); Potassium 4.2 mmol/L (3.4-5.0); Sodium 131 mmol/L (137-145)
[2020-06-11 13:24] LABS: Lactic Acid Reflex 1.5 mmol/L (0.7-2.1)
[2020-06-11 13:37] LABS: Band Neutrophils Percent 3 % (0-6); Lymphocytes Absolute Manual 0.31 K/mm3 (1.1-4.5); Monocytes Absolute Manual 0.56 K/mm3 (0.1-0.90); Monocytes Percent Manual 9 % (3-9); Neutrophils Absolute Manual 5.41 K/mm3 (1.3-6.7); Neutrophils Percent Manual 83 % (46-73); Platelet Estimate Adequate (Adequate); Total Cells Counted 100
--- NOTE | 2020-06-11 14:36 | PC.NURSE ---
straight cathed pt. 15fr, patent/draining, dark yellow, clear, 1.2L
[2020-06-11 15:20] LABS: Add Urine Microscopic? YES; Amorphous Sediment Urine Moderate; Appearance Urine Clear (Clear); Bilirubin Urine Negative (Negative); Blood Urine Negative (Negative); Color Urine Yellow (Yellow); Glucose Urine UA Negative (Negative); Ketones Urine Negative (Negative); Leukocyte Esterase Ur Negative LEU/UL (Negative); Nitrate Urine Negative (Negative); Protein Urine 1+ mg/dL (Negative); Specific Grav Ur 1.017 (1.001-1.035); Urobilinogen Urine Negative mg/dL (<2.0)
--- NOTE | 2020-06-11 17:32 | PC.NURSE ---
This patient, Jaylen Cote, was admitted to 3 Med Surg Room 313-01. Patient/family oriented to hospital policies and general routines including ID bracelet, bed and alarms, visiting hours, pain management, procedures, bathroom and other care routines, personal items, smoking policy, room service/diet, and visiting hours. Information on how to activate the Rapid Response Team has been discussed. Patient/Family are encouraged to report perceived risks to care and to ask questions if they do not understand what they are told or what they should do.
--- NOTE | 2020-06-11 23:35 | PM.IMHP ---
H&P: HPI History of Present Illness Date/Time: 06/11/20 23:35 Chief Complaint: Weakness Narrative: Jaylen Cote is a 65 year old male with extensive stage small cell lung cancer with involvement of the brain, bone and liver. The patient was having a good response to the frontline chemotherapy but then has newly discovered brain metastasis. He is now undergoing whole-brain radiotherapy. The patient also has a Port-A-Cath. To the emergency room today because over the last couple weeks he has been having increased fatigue with exertion over the last day he has not been able to walk. He is not been able to get up off the toilet and he slumped to the ground. He did not strike his head or lose consciousness. He is on Keppra and dex of methadone. Left monthly had a episode of expressive aphasia. Dr. dominguez has been consulted. ER physician has ordered the patient Zofran, [place], morphine, and Tylenol. However the patient stated he has not had any pain medicine in approximately 12 hours. I had asked the patient if he had called and requested anything for pain medication. He is upset about not getting pain medication. I explained that his p.r.n. and he would have to call for. He is moving all extremities at this time. Chest x-ray was read as no acute cardiopulmonary disease. Head CT was read as old lacunar infarcts in the left basal ganglia. Cystic encephalomalacia and right cerebellum and posterior right frontal lobe consistent with treated metastatic disease with interval improvement. Mild nonspecific cerebral white matter disease likely treatment change admitted as observation status on the date of service of 06/11/2020.. Review of Systems Review of Systems: All systems reviewed & are unremarkable except as noted in HPI and below Constitutional: Constitutional: Reports as per HPI and Reports no additional constitutional complaints Eyes: Eyes: Reports as per HPI and Reports no additional eye complaints ENT: Reports system reviewed and no additional complaints, except as documented and Reports Normal hearing present Cardiovascular: Cardiovascular: Reports no additional cardiovascular complaints Respiratory: Respiratory: Reports no additional respiratory complaints and Reports no additional respiratory complaints Gastrointestinal: Gastrointestinal: Reports as per HPI and Reports no additional gastrointestinal complaints Musculoskeletal: Musculoskeletal: Reports no additional musculoskeletal complaints Integumentary/Breasts: Skin/Breast: Reports system reviewed and no additional complaints, except as docu and Reports as per HPI Neurologic: Reports system reviewed and no additional complaints, except as documented, Reports as per HPI and Reports Normal hearing present Psychiatric: Psychiatric: Reports no additional psychiatric complaints and Reports as per HPI Endocrine: Endocrine: Reports no additional endocrine complaints Hematologic/Lymphatic: Hematologic/Lymphatic: Reports no additional hematologic/lymphatic complaints Allergic/Immunologic: Allergic/Immunologic: Reports no additional allergic/immunologic complaints [facility] Past Medical History Medical History (Updated 06/11/20 @ 23:50 by Luciana Bingham NP) Anxiety History of CVA in adulthood HTN (hypertension) Hypercholesterolemia Obesity Port-A-Cath in place Small cell lung cancer LUNG CA WITH METS TO LIVER/SPINE/BRAIN. Surgical History Surgical History (Updated 06/11/20 @ 23:42 by Luciana Bingham NP) H/O foot surgery [facility] History of left hip replacement Family History Family History (Updated 06/11/20 @ 23:43 by Luciana Bingham NP) Father Heart disease Mother Leukemia Social History Social History (Updated 06/11/20 @ 23:44 by Luciana Bingham NP) Social History: Patient lives with his . Who is the durable power full stack net developer for healthcare. The patient deems himself a full code. The patient has 3 children. The patient is ret
[2020-06-12] VITALS: BP 154/80; PULSE 87; RESP 18; TEMP 36.3; O2SAT 98
[2020-06-12] MEDS: ALPRAZolam (*CRX) 0.25 MG TABLET PO ×2 (00:17→09:07)
[2020-06-12] MEDS: traMADol HCL (*CRX) 50 MG TABLET PO ×3 (00:17→20:22)
[2020-06-12 01:23] LABS: SARS-CoV-2 RNA PCR Negative
[2020-06-12] MEDS: levETIRAcetam 500 MG TABLET 1000 MG PO ×3 (01:34→20:21)
[2020-06-12] MEDS: ATORVASTATIN 10 MG TABLET PO ×2 (01:35→20:21)
[2020-06-12 05:41] VITALS: BP 165/85; PULSE 62; RESP 20; TEMP 37.2; O2SAT 96
[2020-06-12 06:36] LABS: Basophils Percent Auto 0.4 % (0.2-1.2); Eosinophils Percent Auto 0.4 % (0-4.4); Hematocrit 35.9 % (42.0-52.0); Hemoglobin 12.5 g/dL (14.0-18.0); Immature Granulocyte Absolute 0.07 K/mm3 (0.00-0.031); Immature Granulocyte Percent A 1.3 % (0-0.5); Immature Platelet Fraction Pct 1.5 % (0.9-11.2); Lymphocytes Absolute Auto 0.52 K/mm3 (0.9-3.2); Lymphocytes Percent Auto 9.8 % (18.3-44.2); Mean Corpuscular HGB Conc 34.8 g/dl (32-36); Mean Corpuscular Hemoglobin 30.6 pg (26-34); Mean Corpuscular Volume 87.8 fl (80-100); Mean Platelet Volume 8.7 fl (7.4-10.4); Monocytes Absolute Auto 0.3 K/mm3 (0.1-0.6); Monocytes Percent Auto 5.8 % (2.6-8.5); Neutrophils Absolute Auto 4.4 K/mm3 (1.3-6.7); Neutrophils Percent Auto 82.3 % (45.5-73.1); Platelet Count Result 140 k/mm3 (150-375); Red Blood Count 4.09 M/mm3 (4.6-6.20); Red Cell Distribution Width 14.8 % (11.5-14.5); White Blood Count 5.3 K/mm3 (4.5-10.0)
[2020-06-12 06:55] LABS: Anion Gap 2 mmol/L (8-16); Blood Urea Nitrogen 18 mg/dL (9-20); Calcium 8.3 mg/dL (8.4-10.2); Carbon Dioxide 30 mmol/L (22-30); Chloride 98 mmol/L (98-107); Estimated CRCL calculation 103 ml/min; Estimated Glomerular Filt Rate > 60; Glucose 93 mg/dL (75-110); Magnesium 1.8 mg/dL (1.6-2.3); Potassium 3.6 mmol/L (3.4-5.0); Sodium 130 mmol/L (137-145)
[2020-06-12 08:00] VITALS: PULSE 62; RESP 20; O2SAT 96
[2020-06-12] MEDS: DEXAMETHASONE 2 MG TABLET PO (09:03)
[2020-06-12] MEDS: lisinopriL 20 MG TABLET PO (09:03)
[2020-06-12] MEDS: amLODIPine BESYLATE 5 MG TABLET PO (09:03)
[2020-06-12] MEDS: ASPIRIN 81 MG CHEWABLE TABLET PO (09:03)
[2020-06-12] MEDS: PANTOPRAZOLE 40 MG TABLET PO (09:04)
--- NOTE | 2020-06-12 10:11 | PCPTNOTE ---
eval attempted....patient declines due to severe pain....spoke with PA who said that he would order more potent medication, and to check on the patient after that...patient requires PT/OT eval for admission to SNF
--- NOTE | 2020-06-12 10:35 | PM.IMPN ---
Progress Note: A&P Assessment and Plan (1) Weakness: Code(s): R53.1 - Weakness Status: Acute Assessment and Plan: Most likely secondary to progressively worsening metastatic disease. PT/OT have been ordered although unable to complete eval due to pain. Patient is adamant to not take anything other then tramadol even for a brief time to obtain the evals unless it is specifically cleared by Dr. Chase who has been consulted. PT and OT evaluation once pain controlled Instructed nursing to contact Dr. Chase to obtain recommendations CC consulted for possibel SNF/rehab Monitor (2) Anxiety: Code(s): F41.9 - Anxiety disorder, unspecified Status: Chronic Assessment and Plan: Continue with Xanax. (3) Lung cancer metastatic to brain: Code(s): C34.90 - Malignant neoplasm of unspecified part of unspecified bronchus or lung; C79.31 - Secondary malignant neoplasm of brain Status: Acute Assessment and Plan: Dr. Chase has been consulted and appreciate recommendations. The patient has been going through immunotherapy as well as radiotherapy. Continue with patient's Keppra and tramadol Continue with antiemetics as well Continue dexamethasone. Await further rec from Dr. Chase (4) HTN (hypertension): Code(s): I10 - Essential (primary) hypertension Status: Chronic Assessment and Plan: BP 160s sys Continue home antihypertensives monitor (5) Hypercholesterolemia: Code(s): E78.00 - Pure hypercholesterolemia, unspecified Status: Chronic Assessment and Plan: Continue with atorvastatin Subjective Date/time seen: 06/12/20 10:35 Interval history: Patient is a 65 yo M with history of metastatic small cell lung carcinoma to the brain and liver, HTN, hypercholesterolemia who is seen in follow up for evaluation for weakness. Patient states he feels okay today, but tells me he was in significant pain when PT/OT evaluated patient; PT confirms that evaluation was cut short due to pain. He is very reluctant to try any medications other than his prescribed tramadol and is adamant that he will not take anything other then his prescribed tramadol unless personally cleared by his oncologist Dr. Chase. It was explained that PT/OT evals are needed prior to placement to a SNF/rehab facility; he stated he understood but again refused anything until speaking with Dr. Chase. He states he is severely constipated but still passing gas. He was making urine up until a Lacy was placed; no blood in urine prior to lacy placement. Otherwise no complaints. Denies f/c/s, headaches, dizziness, lightheadedness, changes in v/h, cp/palpitations, sob/cough, abd pain, calf pain/swelling. Review of Systems Review of Systems: All systems reviewed & are unremarkable except as noted in HPI and below Exam Narrative: Exam Narrative: General: Patient resting in semi-granados's position in bed in no acute distress. HEENT: Normocephalic, EOMI, oral mucosa moist. Cardiovascular: Rate and rhythm are regular. No notable murmur, rub, or gallop. Respiratory: Lungs clear to auscultation all freitas. Non-labored breathing. Abdomen: Soft, non-tender, non-distended, bowel sounds present. : Lacy patent and draining dark red urine Extremities: Peripheral pulses intact. No edema. NTTP b/l calves Neuro: No focal neurological deficits, although generalized weakness appreciated, particularly in b/l LE with him not able to lift legs off bed. Sensation intact. Speech is clear. Objective Data Vital Signs Vital Signs: Last Vital Signs Temp 99.0 F 06/12/20 05:41 Pulse 62 06/12/20 05:41 Resp 20 06/12/20 05:41 BP 165/85 H 06/12/20 05:41 Pulse Ox 96 06/12/20 05:41 Intake/Output Intake/Output
[2020-06-12 11:14] VITALS: BMI 30.8
[2020-06-12 14:00] VITALS: BP 124/64; PULSE 94; RESP 18; TEMP 37.4; O2SAT 98
[2020-06-12] MEDS: ZOLPIDEM TARTRATE (*CRX) 5 MG TABLET PO (20:21)
[2020-06-12 21:39] VITALS: BP 123/73; PULSE 87; RESP 18; TEMP 36.7; O2SAT 94
[2020-06-13 06:00] VITALS: BP 123/84; PULSE 98; RESP 20; TEMP 37; O2SAT 98
[2020-06-13] MEDS: traMADol HCL (*CRX) 50 MG TABLET PO ×2 (06:32→18:04)
[2020-06-13 06:34] LABS: Basophils Percent Auto 0.3 % (0.2-1.2); Eosinophils Percent Auto 0.3 % (0-4.4); Hematocrit 36.4 % (42.0-52.0); Hemoglobin 12.9 g/dL (14.0-18.0); Immature Granulocyte Absolute 0.07 K/mm3 (0.00-0.031); Immature Granulocyte Percent A 1.2 % (0-0.5); Lymphocytes Absolute Auto 0.58 K/mm3 (0.9-3.2); Lymphocytes Percent Auto 9.7 % (18.3-44.2); Mean Corpuscular HGB Conc 35.4 g/dl (32-36); Mean Corpuscular Hemoglobin 30.9 pg (26-34); Mean Corpuscular Volume 87.1 fl (80-100); Mean Platelet Volume 8.2 fl (7.4-10.4); Monocytes Absolute Auto 0.3 K/mm3 (0.1-0.6); Monocytes Percent Auto 4.8 % (2.6-8.5); Neutrophils Percent Auto 83.7 % (45.5-73.1); Platelet Count Result 106 k/mm3 (150-375); Red Blood Count 4.18 M/mm3 (4.6-6.20); Red Cell Distribution Width 14.6 % (11.5-14.5)
[2020-06-13 06:55] LABS: Anion Gap 5 mmol/L (8-16); Blood Urea Nitrogen 19 mg/dL (9-20); Calcium 8.3 mg/dL (8.4-10.2); Carbon Dioxide 28 mmol/L (22-30); Chloride 94 mmol/L (98-107); Estimated CRCL calculation 103 ml/min; Estimated Glomerular Filt Rate > 60; Glucose 93 mg/dL (75-110); Magnesium 1.7 mg/dL (1.6-2.3); Potassium 3.7 mmol/L (3.4-5.0); Sodium 127 mmol/L (137-145)
[2020-06-13] MEDS: DEXAMETHASONE 2 MG TABLET PO (09:43)
[2020-06-13] MEDS: amLODIPine BESYLATE 5 MG TABLET PO (09:43)
[2020-06-13] MEDS: ASPIRIN 81 MG CHEWABLE TABLET PO (09:43)
[2020-06-13] MEDS: levETIRAcetam 500 MG TABLET 1000 MG PO ×2 (09:44→20:09)
[2020-06-13] MEDS: lisinopriL 20 MG TABLET PO (09:44)
[2020-06-13] MEDS: PANTOPRAZOLE 40 MG TABLET PO (09:45)
[2020-06-13] MEDS: MULTIVITAMINS THERAPEUTIC TAB (*BKC) 1 TABLET PO (09:45)
--- NOTE | 2020-06-13 11:15 | PDONCCN ---
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 He completed radiation therapy to the brain on May 03. He has been on steroid taper. He came into the hospital with generalized weakness for for last week or so duration. He has been having difficulty walking due to weakness. He also has been complaining of constipation. Denies any headaches and seizures. Denies any shortness of breath and chest pain. Review of Systems - Review of Systems All systems reviewed & are unremarkable except as noted in HPI and bel - Neurologic Reports system reviewed and no additional complaints, except as documented, Reports hearing normal, Reports weakness, Denies headache(s), Denies focal weakness, Denies numbness PMFSH Medical History: Medical History (Last Updated 06/11/20 @ 23:50 by Luciana Bingham NP) Anxiety History of CVA in adulthood HTN (hypertension) Hypercholesterolemia Obesity Port-A-Cath in place Small cell lung cancer LUNG CA WITH METS TO LIVER/SPINE/BRAIN. Surgical History: Surgical History (Last Updated 06/11/20 @ 23:42 by Luciana Bingham NP) H/O foot surgery Kerene and rells History of left hip replacement Family History: Family History (Last Updated 06/11/20 @ 23:43 by Luciana Bingham NP) Father Heart disease Mother Leukemia - Social History Social History: Social History (Last Updated 06/11/20 @ 23:44 by Luciana Bingham NP) Gender Identity: Gender identity (if verbalized by the patient): Male Alcohol Use: Alcohol intake: never Substance Use: Substance use: never Substance use type: does not use Others: Spiritual care concerns: No Smoking Status: Smoking status: Former smoker Tobacco type: cigarettes Smoking end date: 06/21/17 Smoking Pack-years: Smoking packs per day: 1 Smoking cigarettes per day: 20.0 Years smoked: 40 Smoking pack-years: 40.00 Meds Home Medications Medication Instructions Recorded Confirmed Type amlodipine [Norvasc] 5 mg PO DAILY 04/20/20 06/11/20 History aspirin 81 mg PO DAILY 04/20/20 06/11/20 History benazepril [Lotensin] 20 mg PO DAILY 04/20/20 06/11/20 History levetiracetam [Keppra] 1,000 mg PO BID 04/20/20 06/11/20 History multivitamin [Daily Multivitamin] 1 tablet PO DAILY 04/20/20 06/11/20 History prochlorperazine maleate 10 mg PO Q6H PRN 04/20/20 06/11/20 History [Compazine] tramadol 50 mg PO Q6H PRN 04/20/20 06/11/20 History dexamethasone 2 mg PO DAILY 05/02/20 06/11/20 History alprazolam 0.25 mg PO TID PRN 06/11/20 06/11/20 History atorvastatin 10 mg PO HS 06/11/20 06/11/20 History omeprazole 20 mg PO DAILY 06/11/20 06/11/20 History zolpidem 5 mg PO HS 06/11/20 06/11/20 History Allergies Allergy/AdvReac Type Severity Reaction Status Date / Time No Known Allergies Allergy Unknown NONE Verified 06/11/20 12:11 Results - Labs CBC & Chem 7: 06/13/20 06:28 06/13/20 06:28 Labs: Short CBC 06/13/20 Range/Units 06:28 WBC 6.0 (4.5-10.0) K/mm3 Hgb 12.9 L (14.0-18.0) g/dL Hct 36.4 L (42.0-52.0) % Plt Count 106 L (150-375) k/mm3 [facility] 06/13/20 06:28 Sodium 127 L Potassium 3.7 Chloride 94 L Carbon Dioxide 28 BUN 19 Creatinine 0.70 Glucose 93 Calcium 8.3 L Assessment and Plan - Additional Plan Extensive stage small cell lung cancer with brain and bone involvement. Patient is status post chemotherapy. He also has completed radiation therapy to the brain on May 03 and currently on steroid taper. He has weakness could be due to prolonged use of the steroid. I will discontinue steroid at this time. Juan
[2020-06-13] MEDS: DOCUSATE SODIUM 100 MG CAPSULE PO ×2 (12:24→17:54)
[2020-06-13 14:00] VITALS: BP 136/72; PULSE 92; RESP 22; TEMP 36.7; O2SAT 96
--- NOTE | 2020-06-13 14:11 | PM.IMPN ---
Progress Note: A&P Assessment and Plan (1) Weakness: Code(s): R53.1 - Weakness Status: Acute Assessment and Plan: Most likely secondary to progressively worsening metastatic disease. PT/OT have seen patient on 06/12 but incomplete eval due to pain. Patient is adamant to not take anything other then tramadol even for a brief time to obtain the evals unless it is specifically cleared by Dr. Chase who has been consulted. PT and OT evaluation; CC to be in contact to get specific treatment plans Steroids d/c per Dr. Chase CC consulted for possible SNF/rehab Monitor (2) Anxiety: Code(s): F41.9 - Anxiety disorder, unspecified Status: Chronic Assessment and Plan: Continue with Xanax. (3) Lung cancer metastatic to brain: Code(s): C34.90 - Malignant neoplasm of unspecified part of unspecified bronchus or lung; C79.31 - Secondary malignant neoplasm of brain Status: Acute Assessment and Plan: Dr. Chase has been consulted and appreciate recommendations. The patient has been going through immunotherapy as well as radiotherapy. Continue with patient's Keppra and tramadol Continue with antiemetics as well Dexamethasone d/c per Dr. Chase Await further rec from Dr. Chase (4) HTN (hypertension): Code(s): I10 - Essential (primary) hypertension Status: Chronic Assessment and Plan: BP 130s sys most recently Continue home antihypertensives monitor (5) Hypercholesterolemia: Code(s): E78.00 - Pure hypercholesterolemia, unspecified Status: Chronic Assessment and Plan: Continue with atorvastatin (6) Gross hematuria: Code(s): R31.0 - Gross hematuria Status: Acute Assessment and Plan: Gross hematuria noted in Lacy. Patient denies hematuria prior to lacy placement. Lacy irrigation ordered. Patient may need CBI Will place Urology consult for further input; appreciate recommendations Monitor overnight Subjective Date/time seen: 06/13/20 14:11 Interval history: Patient is a 65 yo M with history of metastatic small cell lung carcinoma to the brain and liver, HTN, hypercholesterolemia who is seen in follow up for evaluation for weakness. Patient states he feels okay again today, but does not want to try PT/OT evals today; I tried to explain the need for eval, he seemed reluctant. He has had a BM after a second enema today; no blood in stools. Otherwise no complaints. Denies f/c/s, headaches, dizziness, lightheadedness, changes in v/h, cp/palpitations, sob/cough, abd pain, calf pain/swelling. Review of Systems Review of Systems: All systems reviewed & are unremarkable except as noted in HPI and below Exam Narrative: Exam Narrative: General: Patient resting supine in bed in no acute distress. HEENT: Normocephalic, EOMI, oral mucosa moist. Cardiovascular: Rate and rhythm are regular. No notable murmur, rub, or gallop. Respiratory: Lungs clear to auscultation all freitas. Non-labored breathing. Abdomen: Soft, non-tender, non-distended, bowel sounds present. : Lacy patent and draining dark red urine Extremities: Peripheral pulses intact. No edema. NTTP b/l calves Neuro: No focal neurological deficits, although generalized weakness appreciated, particularly in b/l LE with him not able to lift legs off bed. Sensation intact. Speech is clear. Objective Data Vital Signs Vital Signs: Vital Signs - 24 hr 06/12/20 21:39 06/13/20 06:00 Temperature 98.0 F 98.6 F Pulse Rate 87 98 Respiratory Rate 18 20 Blood Pressure 123/73 123/84 Pulse Oximetry 94 98 Intake/Output Intake/Output: Intake & Output 06/10/20 06/11/20 06/12/20 06/13/20 23:59 23:59 23:59 23:59 Intake Total 1420 1390
--- NOTE | 2020-06-13 15:54 | WPDURCON ---
Assessment and Plan Assessment and plan (1) Gross hematuria: Code(s): R31.0 - Gross hematuria Status: Acute Assessment and Plan: Likely from traumatic lacy insertion/multiple lacy insertions within a short time period. Will culture urine to rule out infection. Will obtain abdominal CT/KUB. Irrigated bladder via catheter with 240cc of NS 0.9%, without difficulty, patient tolerated well, small clots extracted and urine was pale pink at the end of irrigation. (2) Urinary retention: Code(s): R33.9 - Retention of urine, unspecified Status: Acute Assessment and Plan: Start Flomax. Ok to do a voiding trial prior to discharge. Urology Consult Note HPI Date Seen: 06/13/20 Requesting Physician: Margarito Kessler PA-C Primary Care Provider: Garth Diane, Consult Narrative Narrative: Jaylen Cote is a 65 year old male who presented to the ER with worsening weakness and fatigue secondary to his known metastatic lung cancer to the brain on 06/11/2020. He was found to be in retention in the ER and states 1200cc of urine was drained at that time. The lacy was removed and he was transferred to the floor, where another lacy was then placed. He denies a history of BPH, UTI's or Gross hematuria. His WBC is 6.0, creatinine is 0.70 and he was constipated on arrival but afebrile. No urine sample was collected. He hasn't had any abdominal imaging, but did develop gross hematuria after his second lacy placement. He is on ASA 81mg daily for prevention of OH/stroke. He denies flank pain or abdominal pain. Review of Systems Cardiovascular: Cardiovascular: Reports no additional cardiovascular complaints Respiratory: Respiratory: Reports no additional respiratory complaints Gastrointestinal: Gastrointestinal: Denies abdominal pain, Denies nausea and Denies vomiting Genitourinary: Genitourinary: Reports hematuria and Reports other (retention) [facility] Past Medical History Medical History Anxiety History of CVA in adulthood HTN (hypertension) Hypercholesterolemia Obesity Port-A-Cath in place Small cell lung cancer LUNG CA WITH METS TO LIVER/SPINE/BRAIN. Surgical History Surgical History H/O foot surgery [facility] and [place] History of left hip replacement Family History Family History Father Heart disease Mother Leukemia Social History Social History Social History: Patient lives with his . Who is the durable power county attorney for healthcare. The patient deems himself a full code. The patient has 3 children. The patient is retired from [employer]. The patient used to smoke a pack a cigarettes a day for 40 years and he quit smoking in 2017. No alcohol marijuana or illicit drugs. Smoking packs per day: 1 Smoking cigarettes per day: 20.0 Years smoked: 40 Smoking pack-years: 40.00 Smoking status: Former smoker Tobacco type: cigarettes Smoking end date: 06/21/17 Alcohol intake: never Substance use: never Substance use type: does not use Gender identity (if verbalized by the patient): Male Spiritual care concerns: No Meds Home Medications and Allergies Home Medications Medication Instructions Recorded Confirmed Type amlodipine [Norvasc] 5 mg PO DAILY 04/20/20 06/11/20 History aspirin 81 mg PO DAILY 04/20/20 06/11/20 History benazepril [Lotensin] 20 mg PO DAILY 04/20/20 06/11/20 History levetiracetam [Keppra] 1,000 mg PO BID 04/20/20 06/11/20 History multivitamin [Daily Multivitamin] 1 tablet PO DAILY 04/20/20 06/11/20 History prochlorperazine maleate 10 mg PO Q6H PRN 04/20/20 06/11/20 History [Compazine] tramadol 50 mg PO Q6H PRN 04/20/20 06/11/20 History dexamethasone 2 mg PO DAILY 05/02/20 06/11/20 History alpraz
[2020-06-13 16:54] LABS: SARS-CoV-2 RNA PCR Negative
[2020-06-13] MEDS: TAMSULOSIN HCL 0.4 MG CAPSULE PO (17:53)
[2020-06-13] MEDS: CENTRAL LINE FLUSH 10 ML IV PUSH ×3 (17:55→21:05)
[2020-06-13 18:00] LABS: Add Urine Microscopic? YES; Appearance Urine Turbid (Clear); Bilirubin Urine Negative (Negative); Blood Urine 3+ (Negative); Color Urine Yellow (Yellow); Glucose Urine UA Negative (Negative); Ketones Urine Trace mg/dL (Negative); Leukocyte Esterase Ur Trace LEU/UL (NEGATIVE); Nitrate Urine Negative (Negative); Protein Urine 3+ mg/dL (Negative); RBC Urine >75 /hpf (0-2); Specific Grav Ur 1.028 (1.001-1.035); Urobilinogen Urine Negative mg/dL (<2.0); WBC Clumps Urine Present /HPF; WBC Urine >75 /hpf (0-3)
[2020-06-13] MEDS: ZOLPIDEM TARTRATE (*CRX) 5 MG TABLET PO (20:08)
[2020-06-13] MEDS: ATORVASTATIN 10 MG TABLET PO (20:08)
[2020-06-13 22:00] VITALS: BP 136/79; PULSE 94; RESP 18; TEMP 37; O2SAT 91
[2020-06-14] MEDS: traMADol HCL (*CRX) 50 MG TABLET PO ×2 (03:40→13:33)
[2020-06-14] MEDS: HYDROcodone/acetaminophen (*CRX) 5-325 MG TABLET 1 TAB PO (04:12)
[2020-06-14] MEDS: CENTRAL LINE FLUSH 10 ML IV PUSH ×3 (05:02→20:20)
[2020-06-14 05:37] VITALS: BP 133/81; PULSE 92; RESP 18; TEMP 37; O2SAT 97
[2020-06-14] MEDS: ACETAMINOPHEN 325 MG TABLET 650 MG PO (06:32)
[2020-06-14 06:44] LABS: Basophils Percent Auto 0.3 % (0.2-1.2); Eosinophils Percent Auto 0.4 % (0-4.4); Hematocrit 35.9 % (42.0-52.0); Immature Granulocyte Absolute 0.06 K/mm3 (0.00-0.031); Immature Granulocyte Percent A 0.8 % (0-0.5); Immature Platelet Fraction Pct 1.7 % (0.9-11.2); Lymphocytes Absolute Auto 0.51 K/mm3 (0.9-3.2); Lymphocytes Percent Auto 6.7 % (18.3-44.2); Mean Corpuscular HGB Conc 36.2 g/dl (32-36); Mean Corpuscular Hemoglobin 31.2 pg (26-34); Mean Corpuscular Volume 86.1 fl (80-100); Mean Platelet Volume 8.5 fl (7.4-10.4); Monocytes Absolute Auto 0.3 K/mm3 (0.1-0.6); Monocytes Percent Auto 4.2 % (2.6-8.5); Neutrophils Absolute Auto 6.7 K/mm3 (1.3-6.7); Neutrophils Percent Auto 87.6 % (45.5-73.1); Platelet Count Result 169 k/mm3 (150-375); Red Blood Count 4.17 M/mm3 (4.6-6.20); Red Cell Distribution Width 14.8 % (11.5-14.5); White Blood Count 7.7 K/mm3 (4.5-10.0)
[2020-06-14 06:57] LABS: Anion Gap 5 mmol/L (8-16); Blood Urea Nitrogen 24 mg/dL (9-20); Calcium 8.4 mg/dL (8.4-10.2); Carbon Dioxide 28 mmol/L (22-30); Chloride 95 mmol/L (98-107); Estimated CRCL calculation 91 ml/min; Estimated Glomerular Filt Rate > 60; Glucose 95 mg/dL (75-110); Magnesium 1.6 mg/dL (1.6-2.3); Potassium 3.6 mmol/L (3.4-5.0); Sodium 128 mmol/L (137-145)
[2020-06-14 07:30] VITALS: TEMP 37.3
[2020-06-14 08:00] VITALS: PULSE 92; RESP 18; O2SAT 97
--- NOTE | 2020-06-14 08:23 | PCOTNOTE ---
Attempted to see patient this AM for skilled OT, patient declined, verbalizing he is going for a CT scan this morning and he didn't sleep last night. Patient reports he will work with OT later, If I'm still here. Will attempt again later today.
--- NOTE | 2020-06-14 10:34 | PCOTNOTE ---
Made second attempt to see patient for skilled OT. Patient very agitated as he is still waiting to go for his CT this morning which he reported was scheduled for 7-8am. Patient reported There will be no Occupational Therapy today, tomorrow, or next week!. Patient also reported he did not wish to participate in Physical Therapy either, and PT was informed. Will continue plan of care tomorrow, 06/15/2020.
--- NOTE | 2020-06-14 11:06 | WPDUROPN2 ---
Progress Note: A&P Assessment and Plan (1) Urinary retention: Code(s): R33.9 - Retention of urine, unspecified Status: Acute Assessment and Plan: Remove current lacy and replace with 3 way lacy catheter, then start CBI. Run CBI until urine clears then taper off. Keep CBI off once urine is clear and restart if bloody urine returns. (2) Gross hematuria: Code(s): R31.0 - Gross hematuria Status: Acute Assessment and Plan: Awaiting CT results and culture results for now. Hold ASA, likley from traumatic lacy insertion, but will rule out other causes. Subjective Subjective Date/Time Seen: 06/14/20 11:06 Gross Hematuria continues despite manual irrigation. KUB was done yesterday showing a non obstructive left renal stone, waiting for CT to be done today to rule out sources of hematuria. Likely traumatic lacy insertion in addition to taking aspirin. Review of Systems Cardiovascular: Cardiovascular: Denies chest pain Respiratory: Respiratory: Reports no additional respiratory complaints Gastrointestinal: Gastrointestinal: Denies abdominal pain, Denies nausea and Denies vomiting Genitourinary: Genitourinary: Reports hematuria and Reports other (retention) Exam Resp: Effort & Inspection: normal respiratory effort Cardio: Rate: regular rate GI: GI Palp: Yes Soft to palpation and No Tenderness to palpation present (GI) : General: Yes no CVA tenderness Urinary Catheter: Urinary Catheter: patent and draining, urine dark and urine red Extrem: General: no edema Objective Data Vital Signs Vital Signs: Vital Signs - 24 hr 06/13/20 14:00 06/13/20 22:00 06/14/20 05:37 Temperature 98.0 F 98.6 F 98.6 F Pulse Rate 92 94 92 Respiratory Rate 22 H 18 18 Blood Pressure 136/72 136/79 133/81 Pulse Oximetry 96 91 97 06/14/20 08:00 Temperature Pulse Rate 92 Respiratory Rate 18 Blood Pressure Pulse Oximetry 97 Intake/Output Intake/Output: Intake & Output 06/11/20 06/12/20 06/13/20 06/14/20 23:59 23:59 23:59 23:59 Intake Total 1420 2630 Output Total 600 1300 250 Balance 820 1330 -250 Meds/Results Medications: Active Medications Generic Name Dose Route Start Last Admin Trade Name Freq PRN Reason Stop Dose Admin Acetaminophen 650 mg 06/11/20 14:47 06/14/20 06:32 Acetaminophen 325 Mg Tablet PO 650 mg Q4H PRN Administration Mild Pain (1-3) or Fever Hydrocodone Bitart/Acetaminophen 1 tab 06/12/20 10:10 06/14/20 04:12 Hydrocodone/Acetaminophen (*Crx) 5-325 Mg Tablet PO 1 tab Q6H PRN Administration Pain Rated 7-10 Alprazolam 0.25 mg 06/11/20 23:27 06/12/20 09:07 Alprazolam (*Crx) 0.25 Mg Tablet PO 0.25 mg TID PRN Administration Anxiety Amlodipine Besylate 5 mg 06/12/20 09:00 06/13/20 09:43 Amlodipine Besylate 5 Mg Tablet PO 5 mg DAILY MARIS Administration Aspirin 81 mg 06/12/20 08:00 06/13/20 09:43 Aspirin 81 Mg Chewable Tablet PO 81 mg DAILY@0800 MARIS Administration Atorvastatin Calcium 10 mg 06/12/20 01:10 06/13/20 20:08 Atorvastatin 10 Mg Tablet PO 10 mg HS MARIS Administration Docusate Sodium 100 mg 06/13/20 13:00 06/13/20 17:54 Docusate Sodium 100 Mg Capsule PO 100 mg TID MARIS Administration Heparin Sodium (Porcine) 500 units 06/13/20 07:46 Heparin Sod Flush 500 Units/5 Ml Syringe IV PUSH PRN PRN see comments below Levetiracetam 1,000 mg 06/12/20 01:15 06/13/20 20:09 Levetiracetam 500 Mg Tablet PO 1,000 mg Q12HR MARIS Administration Lisinopril 20 mg 06/12/20 09:00 06/13/20 09:44 Lisinopril 20 Mg Tablet PO 07/12/20 09:01 20 mg DAILY MARIS Administration Morphine Sulfate 4 mg 06/12/20 10:11 Morphine Sulfate (*Crx) 4 Mg/Ml Inj IV PUSH Q2H PRN Breakthrough Pain Multivitamins Therapeutic 1 tablet 06/12/20 09:00 06/13/20 09:45 Multivitamins Therapeutic Tab (*Bkc) PO 1 tablet DAILY MARIS Administration Ondan
--- NOTE | 2020-06-14 11:10 | PC.NURSE ---
Pt going down for CT of abdomen.1110. Pt didnt have a card stating if his port was a power port or not. Had to contact pts for digital copy of card. Copy was given to radiology department. Pt was taken down after they had a copy of this card.
--- NOTE | 2020-06-14 13:15 | PM.IMPN ---
Progress Note: A&P Assessment and Plan (1) Weakness: Code(s): R53.1 - Weakness Status: Acute Assessment and Plan: Most likely secondary to progressively worsening metastatic disease. Continue PT/ OT Steroids d/c per Dr. Chase CC consulted for possible SNF/rehab (2) Anxiety: Code(s): F41.9 - Anxiety disorder, unspecified Status: Chronic Assessment and Plan: Continue with Xanax. (3) Lung cancer metastatic to brain: Code(s): C34.90 - Malignant neoplasm of unspecified part of unspecified bronchus or lung; C79.31 - Secondary malignant neoplasm of brain Status: Acute Assessment and Plan: Dr. Chase has been consulted and appreciate recommendations. The patient has been going through immunotherapy as well as radiotherapy. Continue with patient's Keppra and tramadol Continue with antiemetics as well Dexamethasone d/c per Dr. Chase (4) HTN (hypertension): Code(s): I10 - Essential (primary) hypertension Status: Chronic Assessment and Plan: BP 130s sys most recently Continue home antihypertensives monitor (5) Hypercholesterolemia: Code(s): E78.00 - Pure hypercholesterolemia, unspecified Status: Chronic Assessment and Plan: Continue with atorvastatin (6) Gross hematuria: Code(s): R31.0 - Gross hematuria Status: Acute Assessment and Plan: Gross hematuria noted in Lacy. Patient denies hematuria prior to lacy placement. Lacy irrigation ordered. Will place Urology consult contnue CBI CT awaiting Subjective Date/time seen: 06/14/20 13:15 Interval history: Patient is a 65 yo M with history of metastatic small cell lung carcinoma to the brain and liver, HTN, hypercholesterolemia who is seen in follow up for evaluation for weakness. Pt having ongoing hematuria feels tired. Awaiting CT scan test today for hematuria Review of Systems Review of Systems: All systems reviewed & are unremarkable except as noted in HPI and below Exam Narrative: Exam Narrative: General: Patient resting very anxious HEENT: Normocephalic Cardiovascular: Rate and rhythm are regular. Respiratory: Lungs clear to auscultation all freitas. Abdomen: Soft, non-tender, non-distended, bowel sounds present. : Lacy patent and draining dark red urine Extremities: Peripheral pulses intact. No edema. NTTP b/l calves Neuro: No focal neurological deficits, although generalized weakness of both legs, holding conversation speech is clear Objective Data Vital Signs Vital Signs: Vital Signs - 24 hr 06/13/20 14:00 06/13/20 22:00 06/14/20 05:37 Temperature 36.7 C 37.0 C 37.0 C Pulse Rate 92 94 92 Respiratory Rate 22 H 18 18 Blood Pressure 136/72 136/79 133/81 Pulse Oximetry 96 91 97 06/14/20 08:00 Temperature Pulse Rate 92 Respiratory Rate 18 Blood Pressure Pulse Oximetry 97 Intake/Output Intake/Output: Intake & Output 06/11/20 06/12/20 06/13/20 06/14/20 23:59 23:59 23:59 23:59 Intake Total 1420 2630 Output Total 600 1300 250 Balance 820 1330 -250 Meds/Results Medications: Active Medications Generic Name Dose Route Start Last Admin Trade Name Freq PRN Reason Stop Dose Admin Acetaminophen 650 mg 06/11/20 14:47 06/14/20 06:32 Acetaminophen 325 Mg Tablet PO 650 mg Q4H PRN Administration Mild Pain (1-3) or Fever Hydrocodone Bitart/Acetaminophen 1 tab 06/12/20 10:10 06/14/20 04:12 Hydrocodone/Acetaminophen (*Crx) 5-325 Mg Tablet PO 1 tab Q6H PRN Administration Pain Rated 7-10 Alprazolam 0.25 mg 06/11/20 23:27 06/12/20 09:07 Alprazolam (*Crx) 0.25 Mg Tablet PO 0.25 mg TID PRN Administration Anxiety Amlodipine Besylate
[2020-06-14] MEDS: PANTOPRAZOLE 40 MG TABLET PO (13:34)
[2020-06-14] MEDS: levETIRAcetam 500 MG TABLET 1000 MG PO ×2 (13:34→20:19)
[2020-06-14] MEDS: MULTIVITAMINS THERAPEUTIC TAB (*BKC) 1 TABLET PO (13:34)
[2020-06-14] MEDS: lisinopriL 20 MG TABLET PO (13:34)
[2020-06-14] MEDS: TAMSULOSIN HCL 0.4 MG CAPSULE PO (13:34)
[2020-06-14] MEDS: amLODIPine BESYLATE 5 MG TABLET PO (13:34)
[2020-06-14] MEDS: DOCUSATE SODIUM 100 MG CAPSULE PO ×2 (13:34→17:26)
[2020-06-14 14:00] VITALS: BP 143/78; PULSE 94; RESP 18; TEMP 36.6; O2SAT 91
[2020-06-14] MEDS: CIPROFLOXACIN 500 MG TAB PO (20:17)
[2020-06-14] MEDS: ZOLPIDEM TARTRATE (*CRX) 5 MG TABLET PO (20:19)
[2020-06-14] MEDS: ATORVASTATIN 10 MG TABLET PO (20:20)
[2020-06-14 21:57] VITALS: BP 122/86; PULSE 107; RESP 20; TEMP 36.2; O2SAT 93
[2020-06-15 05:37] VITALS: BP 145/81; PULSE 112; RESP 20; TEMP 36.9; O2SAT 92
[2020-06-15] MEDS: CENTRAL LINE FLUSH 10 ML IV PUSH ×2 (06:11→14:13)
--- NOTE | 2020-06-15 09:16 | WPDUROPN2 ---
Progress Note: A&P Assessment and Plan (1) Urinary retention: Code(s): R33.9 - Retention of urine, unspecified Status: Acute Assessment and Plan: Keep lacy in to monitor urine color and output. Ok to do a voiding trial prior to discharge once urine is clear off CBI for at least 6-8 hours. Continue Flomax indefinitely. (2) Gross hematuria: Code(s): R31.0 - Gross hematuria Status: Acute Assessment and Plan: Secondary to infection and traumatic lacy insertion/Aspirin. May restart Aspirin after discharge. (3) UTI (urinary tract infection): Code(s): N39.0 - Urinary tract infection, site not specified Status: Acute Assessment and Plan: Continue Ciprofloxacin 500mg BID x 7 days. Subjective Subjective Date/Time Seen: 06/15/20 09:16 Gross Hematuria is improved on antibiotic therapy and CBI. CT scan shows cystitis, but Urologically otherwise normal. CBI is turned off now and urine is clear. Patient is doing well and in no pain. Review of Systems Cardiovascular: Cardiovascular: Denies chest pain Respiratory: Respiratory: Reports no additional respiratory complaints Gastrointestinal: Gastrointestinal: Denies abdominal pain, Denies nausea and Denies vomiting Genitourinary: Genitourinary: Denies hematuria and Reports other (retention) Exam Resp: Effort & Inspection: normal respiratory effort Cardio: Rate: tachycardic GI: GI Palp: Yes Soft to palpation and No Tenderness to palpation present (GI) : General: Yes no CVA tenderness Urinary Catheter: Urinary Catheter: patent and draining and urine clear Extrem: General: no edema Objective Data Vital Signs Vital Signs: Vital Signs - 24 hr 06/14/20 14:00 06/14/20 21:57 06/15/20 05:37 Temperature 97.8 F 97.1 F L 98.4 F Pulse Rate 94 107 H 112 H Respiratory Rate 18 20 20 Blood Pressure 143/78 H 122/86 145/81 H Pulse Oximetry 91 93 92 Intake/Output Intake/Output: Intake & Output 06/12/20 06/13/20 06/14/20 06/15/20 23:59 23:59 23:59 23:59 Intake Total 1420 2630 315 450 Output Total 600 1300 1550 1450 Balance 820 1330 -1235 -1000 Meds/Results Medications: Active Medications Generic Name Dose Route Start Last Admin Trade Name J Carlosq PRN Reason Stop Dose Admin Acetaminophen 650 mg 06/11/20 14:47 06/14/20 06:32 Acetaminophen 325 Mg Tablet PO 650 mg Q4H PRN Administration Mild Pain (1-3) or Fever Hydrocodone Bitart/Acetaminophen 1 tab 06/12/20 10:10 06/14/20 04:12 Hydrocodone/Acetaminophen (*Crx) 5-325 Mg Tablet PO 1 tab Q6H PRN Administration Pain Rated 7-10 Alprazolam 0.25 mg 06/11/20 23:27 06/12/20 09:07 Alprazolam (*Crx) 0.25 Mg Tablet PO 0.25 mg TID PRN Administration Anxiety Amlodipine Besylate 5 mg 06/12/20 09:00 06/14/20 13:34 Amlodipine Besylate 5 Mg Tablet PO 5 mg DAILY MARIS Administration Aspirin 81 mg 06/12/20 08:00 06/14/20 11:16 Aspirin 81 Mg Chewable Tablet PO Not Given DAILY@0800 [facility] Atorvastatin Calcium 10 mg 06/12/20 01:10 06/14/20 20:20 Atorvastatin 10 Mg Tablet PO 10 mg HS MARIS Administration Ciprofloxacin 500 mg 06/14/20 21:00 06/14/20 20:17 Ciprofloxacin 500 Mg Tab PO 500 mg Q12HR MARIS Administration Docusate Sodium 100 mg 06/13/20 13:00 06/14/20 17:26 Docusate Sodium 100 Mg Capsule PO 100 mg TID MARIS Administration Heparin Sodium (Porcine) 500 units 06/13/20 07:46 Heparin Sod Flush 500 Units/5 Ml Syringe IV PUSH PRN PRN see comments below Levetiracetam 1,000 mg 06/12/20 01:15 06/14/20 20:19 Levetiracetam 500 Mg Tablet PO 1,000 mg Q12HR MARIS Administration Lisinopril 20 mg 06/12/20 09:00 06/14/20 13:34 Lisinopril 20 Mg Tablet PO 07/12/20 09:01 20 mg DAILY MARIS Administration Morphine Sulfate 4 mg 06/12/20 10:11 Morphine Sulfate (*Crx) 4 Mg/Ml Inj IV PUSH Q2H PRN Breakthrough Pain Multivitamins Therapeutic
[2020-06-15] MEDS: traMADol HCL (*CRX) 50 MG TABLET PO (09:42)
[2020-06-15] MEDS: CIPROFLOXACIN 500 MG TAB PO (09:45)
[2020-06-15] MEDS: MULTIVITAMINS THERAPEUTIC TAB (*BKC) 1 TABLET PO (09:45)
[2020-06-15] MEDS: lisinopriL 20 MG TABLET PO (09:45)
[2020-06-15] MEDS: TAMSULOSIN HCL 0.4 MG CAPSULE PO (09:45)
[2020-06-15] MEDS: amLODIPine BESYLATE 5 MG TABLET PO (09:45)
[2020-06-15] MEDS: DOCUSATE SODIUM 100 MG CAPSULE PO ×3 (09:45→17:02)
[2020-06-15] MEDS: PANTOPRAZOLE 40 MG TABLET PO (09:45)
[2020-06-15] MEDS: levETIRAcetam 500 MG TABLET 1000 MG PO ×2 (09:45→21:28)
[2020-06-15 10:50] VITALS: BMI 10.0
[2020-06-15 10:58] VITALS: BMI 10.0
--- NOTE | 2020-06-15 12:00 | PM.IMPN ---
Progress Note: A&P Assessment and Plan (1) Weakness: Code(s): R53.1 - Weakness Status: Acute Assessment and Plan: Most likely secondary to progressively worsening metastatic disease. Continue PT/ OT Steroids d/c per Dr. Chase CC consulted for possible SNF/rehab (2) Anxiety: Code(s): F41.9 - Anxiety disorder, unspecified Status: Chronic Assessment and Plan: Continue with Xanax. (3) Lung cancer metastatic to brain: Code(s): C34.90 - Malignant neoplasm of unspecified part of unspecified bronchus or lung; C79.31 - Secondary malignant neoplasm of brain Status: Acute Assessment and Plan: Dr. Chase has been consulted and appreciate recommendations. The patient has been going through immunotherapy as well as radiotherapy. Continue with patient's Keppra and tramadol Continue with antiemetics as well Dexamethasone d/c per Dr. Chase (4) HTN (hypertension): Code(s): I10 - Essential (primary) hypertension Status: Chronic Assessment and Plan: BP 130s sys most recently Continue home antihypertensives monitor (5) Hypercholesterolemia: Code(s): E78.00 - Pure hypercholesterolemia, unspecified Status: Chronic Assessment and Plan: Continue with atorvastatin (6) Gross hematuria: Code(s): R31.0 - Gross hematuria Status: Acute Assessment and Plan: Gross hematuria noted in Lacy. Patient denies hematuria prior to lacy placement. Lacy irrigation ordered. 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 Pt having ongoing hematuria feels tired. Awaiting CT scan test today for hematuria Exam Narrative: Exam Narrative: General: Patient resting very anxious HEENT: Normocephalic Cardiovascular: Rate and rhythm are regular. Respiratory: Lungs clear to auscultation all freitas. Abdomen: Soft, non-tender, non-distended, bowel sounds present. : Lacy patent and draining dark red urine Extremities: Peripheral pulses intact. No edema. NTTP b/l calves Neuro: No focal neurological deficits, although generalized weakness of both legs, holding conversation speech is clear Objective Data Vital Signs Vital Signs: Vital Signs - 24 hr 06/14/20 14:00 06/14/20 21:57 06/15/20 05:37 Temperature 36.6 C 36.2 C L 36.9 C Pulse Rate 94 107 H 112 H Respiratory Rate 18 20 20 Blood Pressure 143/78 H 122/86 145/81 H Pulse Oximetry 91 93 92 Intake/Output Intake/Output: Intake & Output 06/12/20 06/13/20 06/14/20 06/15/20 23:59 23:59 23:59 23:59 Intake Total 1420 2630 315 450 Output Total 600 1300 1550 1450 Balance 820 1330 -1235 -1000 Meds/Results Medications: Active Medications Generic Name Dose Route Start Last Admin Trade Name Freq PRN Reason Stop Dose Admin Acetaminophen 650 mg 06/11/20 14:47 06/14/20 06:32 Acetaminophen 325 Mg Tablet PO 650 mg Q4H PRN Administration Mild Pain (1-3) or Fever Hydrocodone Bitart/Acetaminophen 1 tab 06/12/20 10:10 06/14/20 04:12 Hydrocodone/Acetaminophen (*Crx) 5-325 Mg Tablet PO 1 tab Q6H PRN Administration Pain Rated 7-10 Alprazolam 0.25 mg 06/11/20 23:27 06/12/20 09:07 Alprazolam (*Crx) 0.25 Mg Tablet PO 0.25 mg TID PRN Administration Anxiety Amlodipine Besylate 5 mg 06/12/20 09:00 06/15/20 09:45 Amlodipine Besylate 5 Mg Tablet PO 5 mg DAILY MARIS Administration Aspirin 81 mg 06/12/20 08:00 06/14/20 11:16 Aspirin 81 Mg Chewable Tablet
--- NOTE | 2020-06-15 12:06 | PM.IMPN ---
Progress Note: A&P Assessment and Plan (1) Weakness: Code(s): R53.1 - Weakness Status: Acute Assessment and Plan: Most likely secondary to progressively worsening metastatic disease. Continue PT/ OT Steroids d/c per Dr. Chase CC consulted for possible SNF/rehab (2) Anxiety: Code(s): F41.9 - Anxiety disorder, unspecified Status: Chronic Assessment and Plan: Continue with Xanax. (3) Lung cancer metastatic to brain: Code(s): C34.90 - Malignant neoplasm of unspecified part of unspecified bronchus or lung; C79.31 - Secondary malignant neoplasm of brain Status: Acute Assessment and Plan: Dr. Chase has been consulted and appreciate recommendations. The patient has been going through immunotherapy as well as radiotherapy. Continue with patient's Keppra and tramadol and steroids CT head, CXR , Ct abdo and pelvis reviewed (4) HTN (hypertension): Code(s): I10 - Essential (primary) hypertension Status: Chronic Assessment and Plan: CHronic and stable (5) Hypercholesterolemia: Code(s): E78.00 - Pure hypercholesterolemia, unspecified Status: Chronic Assessment and Plan: Continue with atorvastatin (6) Gross hematuria: Code(s): R31.0 - Gross hematuria Status: Acute Assessment and Plan: CBI stopped voiding trial and lacy removed today hopeful Dc audra to SNF placement. 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 Pt did well with CBI urine is clear today, CBI stopped pt to have a voiding trail today. Review of Systems Review of Systems: All systems reviewed & are unremarkable except as noted in HPI and below Exam Const: General: Physically active Nutritional Appearance: average body habitus and overweight Orientation/consciousness: oriented to person, oriented to place, oriented to time and patient oriented x3 Limitations: no limitations Chest: Chest palpation & inspection: normal inspection of the chest Resp: Effort & Inspection: normal respiratory effort Auscultation: clear to auscultation bilaterally Percussion: percussion normal Cardio: Rate: regular rate Rhythm: regular rhythm Heart sounds: S2 normal heart sound present GI: Inspection: normal to inspection Auscultation: normal bowel sounds Neuro: General: oriented to person, oriented to place, oriented to time and patient oriented x3 Cranial nerves: Yes Equal, round and reactive pupils present and Yes Normal hearing present Cognition (Neuro): normal cognition Speech: normal speech Gait exam (Neuro): Normal gait present Motor exam (neuro): 5/5 motor strength present throughout Sensory Exam: normal sensation Extrem: General: normal to inspection Right upper extremity: normal to inspection Left upper extremity: normal to inspection Right lower extremity: normal to inspection Left lower extremity: normal to inspection Psych: Appearance: grossly normal Mental Status: mental status grossly normal Speech and movement: Normal speech and movement present Affect: Irritable affect present Attitude: cooperative Thought process: Normal thought process present Insight: Fair insight present (Psych) Judgement: Fair judgement present (Psych) Objective Data Vital Signs Vital Signs: Vital Signs - 24 h
[2020-06-15 14:00] VITALS: BP 129/71; PULSE 110; RESP 20; TEMP 37.2; O2SAT 93
--- NOTE | 2020-06-15 15:04 | PM.DS ---
DS: Admitting Diagnosis Admitting Diagnosis Admitting Diagnosis: WEAKNESS DS: Discharge Diagnosis Discharge Diagnosis (1) Weakness: Code(s): R53.1 - Weakness Status: Acute Assessment and Plan: Most likely secondary to progressively worsening metastatic disease. Continue PT/ OT Steroids d/c per Dr. Chase Pt to go to SNF placement. (2) Anxiety: Code(s): F41.9 - Anxiety disorder, unspecified Status: Chronic Assessment and Plan: Continue with Xanax. (3) Lung cancer metastatic to brain: Code(s): C34.90 - Malignant neoplasm of unspecified part of unspecified bronchus or lung; C79.31 - Secondary malignant neoplasm of brain Status: Acute Assessment and Plan: Dr. Chase has been consulted and appreciate recommendations. The patient has been going through immunotherapy as well as radiotherapy. Continue with patient's Keppra and tramadol and steroids CT head, CXR , Ct abdo and pelvis reviewed (4) HTN (hypertension): Code(s): I10 - Essential (primary) hypertension Status: Chronic Assessment and Plan: CHronic and stable (5) Hypercholesterolemia: Code(s): E78.00 - Pure hypercholesterolemia, unspecified Status: Chronic Assessment and Plan: Continue with atorvastatin (6) Gross hematuria: Code(s): R31.0 - Gross hematuria Status: Acute Assessment and Plan: CBI stopped voiding trial and lacy removed today. 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 Pt seen by DR Chase oncology. Pt did well with CBI urine is clear today, CBI stopped pt to have a voiding trail today. Time Spent with Patient Time attestation: Total time spent providing and/or coordinating discharge services:40 minutes on day of dischrage Exam Const: General: Physically active Nutritional Appearance: average body habitus and overweight Orientation/consciousness: oriented to person, oriented to place, oriented to time and patient oriented x3 Limitations: no limitations HENMT: Head: normal to inspection, No palpable skull fracture present, normocephalic and atraumatic Ears: hearing grossly normal bilaterally and external ears normal General nose exam: Normal external nose present, Normal nares present and No nasal polyps present Eyes: General: appearance normal, both eyes and all related structures Chest: Chest palpation & inspection: normal inspection of the chest Resp: Effort & Inspection: normal respiratory effort Auscultation: clear to auscultation bilaterally Percussion: percussion normal Cardio: Palpation: normal PMI Rate: regular rate Rhythm: regular rhythm Heart sounds: S2 normal heart sound present Peripheral pulses: Peripheral pulses 2+ throughout GI: Inspection: normal to inspection Auscultation: normal bowel sounds Neuro: General: oriented to person, oriented to place, oriented to time and patient oriented x3 Cranial nerves: Yes Equal, round and reactive pupils present and Yes Normal hearing present Cognition (Neuro): normal cognition Speech: normal speech Gait exam (Neuro): Normal gait present Motor exam (neuro): 5/5 motor strength present throughout Sensory Exam: normal sensation Extrem: General: normal to inspection Right upper extremity: normal to inspection Left upper
[2020-06-15] MEDS: HEPARIN SOD FLUSH 500 UNITS/5 ML SYRINGE IV PUSH (15:52)
[2020-06-15 21:21] VITALS: BP 113/70; PULSE 108; RESP 18; TEMP 36.8; O2SAT 92
[2020-06-15] MEDS: ATORVASTATIN 10 MG TABLET PO (21:28)
[2020-06-15] MEDS: ZOLPIDEM TARTRATE (*CRX) 5 MG TABLET PO (21:28)
[2020-06-16] MEDS: traMADol HCL (*CRX) 50 MG TABLET PO (05:19)
[2020-06-16 05:20] VITALS: BP 128/65; PULSE 108; RESP 18; TEMP 36.7; O2SAT 93
--- NOTE | 2020-06-16 06:53 | PC.NURSE ---
Pt had three way lacy pulled 06/15/2020 afternoon. Pt was to leave by ambulance at 1900. Pt had not voided all night, thought he might need to void at 0500. He was unsuccessful. Bladder scan showed only 200 in. Informed EMS.
== END 2020-06-16 07:00 | DRG 181 ==
LOC: ANHED 12:28 → ANH3MEDSUR 16:00
PROVIDERS: Family Medicine; Nurse Practitioner; Nurse Practitioner Adult Health; Physician Assistant; Admitting Provider Internal Medicine; Emergency Provider Emergency Medicine; PCP Internal Medicine; Visit Provider Internal Medicine
DX: C34.90 Malignant neoplasm of unspecified part of unspecified bronchus or lung; C79.51 Secondary malignant neoplasm of bone; C78.7 Secondary malignant neoplasm of liver and intrahepatic bile duct; C79.31 Secondary malignant neoplasm of brain; N39.0 Urinary tract infection, site not specified; B96.4 Proteus (mirabilis) (morganii) as the cause of diseases classified elsewhere; R53.1 Weakness; Z20.828 Contact with and (suspected) exposure to other viral communicable diseases; R31.0 Gross hematuria; R33.9 Retention of urine, unspecified; K59.00 Constipation, unspecified; F41.9 Anxiety disorder, unspecified; R26.2 Difficulty in walking, not elsewhere classified; I10 Essential (primary) hypertension; E78.00 Pure hypercholesterolemia, unspecified; Z96.642 Presence of left artificial hip joint; Z79.82 Long term (current) use of aspirin; Z79.899 Other long term (current) drug therapy; Z86.73 Personal history of transient ischemic attack (TIA), and cerebral infarction without residual deficits; Z87.891 Personal history of nicotine dependence; Z92.21 Personal history of antineoplastic chemotherapy; Z92.3 Personal history of irradiation; Z95.828 Presence of other vascular implants and grafts
CPT/HCPCS: 36415; 51701; 70450; 71046; 74018; 74178; 80048; 80053; 80177; 81001; 83605; 83735; 84443; 85025; 85055; 87077; 87086; 87088; 87186; 87635; 97161; 97164; 97166; 99285; A9270; C9803; G0378; J8540; Q9967; U0003